=== PATIENT | female | born 1970 | race Caucasian/White ===

== ENCOUNTER 2016-08-07 14:22 | Inpatient (IN) ==
--- NOTE | 2016-08-07 14:43 | Emergency Department Note ---
Disposition Clinical Impression: STEMI (ST elevation myocardial infarction) Disposition: Admitted As Inpatient Condition: Critical Chest Pain HPI - General Chief Complaint: ED Chest Pain Stated Complaint: Chest Pain Time Seen by Provider: 08/07/16 14:35 Source: patient Limitations: no limitations Vital Signs Reviewed: Yes Nursing Notes Reviewed: Yes - History of Present Illness HPI Narrative: Mrs. Daniels, 46-year-old female, presents from home via POV with chief complaint of chest pain. Onset one hour prior to arrival while walking around a department store. Described as substernal intense squeeze without radiation. Patient is having difficulty with the interview given her dyspnea. She appears pale, diaphoretic, clutching her chest. PMH: [place] October 2014 with stents placed. She states this was secondary to chemotherapy. Severity scale (1-10): 9 - Related Data Home Medications Medication Instructions Recorded Confirmed Ascorbate Calcium [Vitamin C] 1,000 mg PO DAILY 08/07/16 08/07/16 Aspirin Enteric Coated [Aspirin EC] 81 mg PO DAILY 08/07/16 08/07/16 Atorvastatin Calcium [Lipitor] 80 mg PO HS 08/07/16 08/07/16 Cholecalciferol (D-3) [Vitamin D] 1,000 unit PO DAILY 08/07/16 08/07/16 Citalopram [CeleXA] 20 mg PO DAILY 08/07/16 08/07/16 Cyanocobalamin (Vitamin B-12) 100 mcg PO DAILY 08/07/16 08/07/16 [Vitamin B-12] Dulaglutide [Trulicity] 0.75 mg SQ QWEEK 08/07/16 08/07/16 Furosemide [Lasix] 20 mg PO DAILY 08/07/16 Gabapentin [Neurontin] 600 mg PO TID 08/07/16 08/07/16 Insulin Degludec [Tresiba 40 unit SQ HS 08/07/16 Flextouch U-100] L. Acidophilus/Bifid. Animalis 1 each PO DAILY 08/07/16 08/07/16 [Dialyvite Chewable Probiotic] Metformin HCl [Glucophage] 1,000 mg PO BIDWM 08/07/16 08/07/16 Metoprolol [Lopressor] 25 mg PO BID 08/07/16 08/07/16 Multivit with Calcium,Iron,Min 1 each PO DAILY 08/07/16 [One Daily Women's] [place]-3/Dha/Epa/Fish Oil [Fish Oil 1,000 mg PO DAILY 08/07/16 1,000 mg Softgel] Ubidecarenone [Co Q-10] 100 mg PO QID 08/07/16 08/07/16 Allergies Allergy/AdvReac Type Severity Reaction Status Date / Time Iodinated Contrast Media - Allergy Vomiting Verified 08/07/16 14:25 Oral and paclitaxel [From Taxol] Allergy Anaphylaxis Verified 08/07/16 14:25 All systems ED: reviewed and negative except as stated. Constitutional: Reports: weakness. Denies: fever, chills Cardiovascular: Reports: chest pain. Denies: palpitations Respiratory: Reports: dyspnea. Denies: cough, wheezes Gastrointestinal: Reports: nausea. Denies: abdominal pain, vomiting Musculoskeletal: Denies: back pain, neck pain Neurological: Reports: weakness. Denies: headache, numbness, paresthesias, confusion Chest Pain PMH - Past Medical History Medical history: Reports: cancer, diabetes, hyperlipidemia, hypertension, kidney stones, myocardial infarction - Social History Smoking Status: Current every day smoker Alcohol use: Reports: none Drug use: Reports: none Physical Exam Patient's vital signs are remarkably normal. General: Patient is alert, oriented, and in acute distress. She is dyspneic, pale, diaphoretic, clutching her chest. HEENT: No facial asymmetry. Head is normocephalic and atraumatic. Trachea midline. Cardiovascular: Heart regular rate and rhythm without clicks, rubs, gallops, or murmurs. No JVD. PMI nondisplaced. Bilateral radial and posterior tibial pulses equal and 2/4. 1+ pitting pedal edema. Respiratory: Symmetric chest rise with good respiratory effort. Bilateral breath sounds are clear without wheezing, crackles, or rhonchi. Abdomen: Obese. Bowel sounds present normoactive x-4 quadrants. Abdomen is soft, nondistended, and nontender. Psych: Patient's affect is appropriate for situation. - General Limitations: no limitations General appearance: alert Course Course Narrative: Patient presents one hour after onset of chest pain which was unrelieved with prescription of nitroglycerin. She is pale, diaphoretic, dyspneic, conversational dyspnea, clutching her chest. Spoke with interventional cardiology-Dr. Riddle. We discussed the patient's EKG and as well as her new ST elevations in leads 3 and aVF. He agrees to catheter lab at this time. Have ordered given patient aspirin. Will add Brilanta. Patient vomited her aspirin and Brilanta - will re-dose and provide Zofran IV. Patient taken to catheter lab and administered the ICU from there. Vital Signs Temperature 97.5 F L 08/07/16 14:25 Pulse Rate 58 08/07/16 14:25 Respiratory Rate 18 08/07/16 14:25 Blood Pressure 95/61 08/07/16 14:25 O2 Sat by Pulse Oximetry 100 08/07/16 14:25 Temperature 99 F 08/07/16 20:00 Pulse Rate 70 08/07/16 21:00 Respiratory Rate 16 08/07/16 21:00 Blood Pressure 122/73 08/07/16 21:00 O2 Sat by Pulse Oximetry 98 08/07/16 21:00 Oxygen Delivery Oxygen Delivery Room Air Chest Pain - Medical Records Medical records reviewed: Yes I reviewed the patient's medical records. - Lab Data Result diagrams: 08/07/16 14:44 08/07/16 14:44 Lab Results 08/07/16 08/07/16 08/07/16 Range/Units 14:44 14:44 14:44 WBC 14.7 H (4.3-11.1) K/mcL RBC 4.72 (3.82-4.97) M/mcL Hgb 12.8 (11.5-15.4) g/dL Hct 39.9 (35.3-44.9) % MCV 84.5 (83.0-100.0) fL MCH 27.1 L (28.0-33.3) pg MCHC 32.1 (31.6-35.5) g/dL RDW 14.3 (11.5-14.5) % Plt Count 418 H (140-400) K/mcL MPV 8.9 L (9.4-12.4) fL Immature Gran % 0.4 (0-4) % Seg Neutrophils % 61.1 % Lymphocytes % 29.0 % Monocytes % 6.3 % Eosinophils % 2.7 % Basophils % 0.5 % Neutrophils # 9.0 H (1.6-8.9) K/mcL Lymphocytes # 4.3 (0.6-4.6) K/mcL Monocytes # 0.9 (0.0-1.3) K/mcL Eosinophils # 0.4 (0.0-0.6) K/mcL Basophils # 0.1 (0.0-0.2) K/mcL PT 11.5 (9.4-12.1) Seconds INR 1.1 APTT 25.4 L (26.0-36.0) Seconds Sodium 141 (136-145) mEq/L Potassium 3.7 (3.5-4.5) mEq/L Chloride 106 (98-109) mEq/L Carbon Dioxide 21 (19-29) mEq/L BUN 22 H (7-20) mg/dL Creatinine 1.22 H (0.57-1.11) mg/dL Est GFR ( Amer) 58 L (> 60) Est GFR (Non-Af Amer) 47 L (> 60) BUN/Creatinine Ratio 18 (6-26) Glucose 170 H (70-99) mg/dL Calculated Osmolality 299 (280-300) Calcium 9.9 (8.6-10.8) mg/dL Troponin I (0-0.03) ng/mL 08/07/ Range/Units 14:44 WBC (4.3-11.1) K/mcL RBC (3.82-4.97) M/mcL Hgb (11.5-15.4) g/dL Hct (35.3-44.9) % MCV (83.0-100.0) fL MCH (28.0-33.3) pg MCHC (31.6-35.5) g/dL RDW (11.5-14.5) % Plt Count (140-400) K/mcL MPV (9.4-12.4) fL Immature Gran % (0-4) % Seg Neutrophils % % Lymphocytes % % Monocytes % % Eosinophils % % Basophils % % Neutrophils # (1.6-8.9) K/mcL Lymphocytes # (0.6-4.6) K/mcL Monocytes # (0.0-1.3) K/mcL Eosinophils # (0.0-0.6) K/mcL Basophils # (0.0-0.2) K/mcL PT (9.4-12.1) Seconds INR APTT (26.0-36.0) Seconds Sodium (136-145) mEq/L Potassium (3.5-4.5) mEq/L Chloride (98-109) mEq/L Carbon Dioxide (19-29) mEq/L BUN (7-20) mg/dL Creatinine (0.57-1.11) mg/dL Est GFR ( Amer) (> 60) Est GFR (Non-Af Amer) (> 60) BUN/Creatinine Ratio (6-26) Glucose (70-99) mg/dL Calculated Osmolality (280-300) Calcium (8.6-10.8) mg/dL Troponin I 0.00 (0-0.03) ng/mL - Radiology Data Radiology results reviewed: Yes I reviewed the patient's radiology results. - EKG Data EKG attestation: Yes I reviewed and interpreted this EKG. EKG results narrative: EKG dated 08/07/16 at 14:3200 as sinus bradycardia with a rate of 55. Normal intervals with IN 140, QRS 102, QT/QTc 439/429. [address] elevation in lead 3. [address] elevation in lead aVF. [address] elevation in lead V3. Possible ST depression in lead aVL. No T-wave inversions. No pathologic Q waves. Compared to previous dated 07/10/[address] elevations in leads 3, aVF, and V3 as well as possible ST depression in aVL are new. Heart Score - Score History: Highly Suspicious EKG: Non Specific repolarisation Disturbance Age: 45-65 Risk Factors: Equal/Greater than 3 risk factor or history of atherosclerotic disease Troponin: Less than normal limit HEART Score Total: 6 Attestation Statement - Attestation Attestation: I examined this patient and my medical decision-making was reviewed with the SENIOR MORTGAGE LOAN PROCESSOR/PA/Advanced Practice Nurse/Resident Physician. I agree with the documented findings, disposition and treatment plan as described except to the extent set forth below. 46 yo female presents with CP, n/v, diaphoresis, and SOB. onset 1 hour prior to arrival. ECG concerning for inferior STEMI. interventional cardiology notified after initial evaluation. Pt started on heparin, given ASA, and brillinta. transfered to orthodontic laboratory technician with VSS.
[2016-08-07] MEDS ORDERED: *HR* Heparin 5,000 UNIT/ML VIAL IVP ONE (14:44)
[2016-08-07] MEDS ORDERED: *HR* Heparin 5,000 UNIT/ML VIAL IVP PRN ×2 (14:44)
[2016-08-07] MEDS ORDERED: Heparin 25,000 UNIT/500 ML D5W 25,000 UNIT/500 ML MLS IVC SCH (14:45)
[2016-08-07] MEDS ORDERED: *HR* Heparin 5,000 UNIT/ML VIAL ONE (14:47)
[2016-08-07] MEDS ORDERED: *HR* Ticagrelor 90 MG TABLET ONE (14:47)
[2016-08-07] MEDS ORDERED: *HR* Ticagrelor 90 MG TABLET PO ONE ×2 (14:47→14:54)
[2016-08-07] MEDS ORDERED: 0.9 % Sodium Chloride 1,000 ML ONE (14:48)
[2016-08-07 14:51] LABS: Basophils # 0.1 K/mcL (0.0-0.2); Basophils % 0.5 %; Eosinophils # 0.4 K/mcL (0.0-0.6); Eosinophils % 2.7 %; Hematocrit 39.9 % (35.3-44.9); Hemoglobin 12.8 g/dL (11.5-15.4); Immature Granulocytes % 0.4 % (0-4); Lymphocytes # 4.3 K/mcL (0.6-4.6); Mean Corpuscular HGB Conc 32.1 g/dL (31.6-35.5); Mean Corpuscular Hemoglobin 27.1 pg (28.0-33.3); Mean Corpuscular Volume 84.5 fL (83.0-100.0); Mean Platelet Volume 8.9 fL (9.4-12.4); Monocytes # 0.9 K/mcL (0.0-1.3); Monocytes % 6.3 %; Platelet Count 418 K/mcL (140-400); Red Blood Count 4.72 M/mcL (3.82-4.97); Red Cell Distribution Width 14.3 % (11.5-14.5); Segmented Neutrophils % 61.1 %
[2016-08-07] MEDS: Aspirin 81 MG TAB.CHEW ONE ×2 (14:51→14:52)
[2016-08-07] MEDS ORDERED: 0.9 % Sodium Chloride 2,000 ML ONE (14:53)
[2016-08-07] MEDS ORDERED: *HR* Midazolam HCl 2 MG/2 ML VIAL ONE (14:53)
[2016-08-07] MEDS ORDERED: *HR* FentaNYL (PF) 100 MCG/2 ML VIAL ONE (14:53)
[2016-08-07] MEDS ORDERED: Ondansetron 4 MG/2 ML VIAL ONE (14:54)
[2016-08-07] MEDS ORDERED: Heparin 1,000 UNITS/500 mL NS 500 ML ONE (14:54)
[2016-08-07] MEDS ORDERED: *HR* Heparin 10,000 UNIT/10 ML VIAL ONE (14:54)
[2016-08-07] MEDS ORDERED: Aspirin 81 MG TAB.CHEW PO ONE (14:54)
[2016-08-07] MEDS ORDERED: Ondansetron 4 MG/2 ML VIAL IVP ONE (14:54)
[2016-08-07 14:55] LABS: INR 1.1; Prothrombin Time 11.5 Seconds (9.4-12.1)
[2016-08-07] MEDS ORDERED: Nitroglycerin 1,000 MCG/10 ML VIAL IV ONE (14:55)
[2016-08-07] MEDS ORDERED: methylPREDNISolone 125 MG/2 ML VIAL ONE (14:55)
[2016-08-07] MEDS ORDERED: Verapamil 5 MG/2 ML VIAL ONE (14:55)
[2016-08-07] MEDS ORDERED: Aspirin 81 MG TAB.CHEW ONE (14:56)
[2016-08-07 14:58] LABS: Activated Partial Thrombo Time 25.4 Seconds (26.0-36.0)
--- NOTE | 2016-08-07 15:05 | Cardiology History & Physical ---
Date of Encounter: 08/07/16 Time of Encounter: 15:00 Assessment and Plan (1) STEMI (ST elevation myocardial infarction) Current Visit: Yes Status: Acute Emergent LHC. Premedicated for contrast allergy with solumedrol and benadryl. EF assessment will be completed. Aspirin, brilinta and heparin given. Appropriate therapies once coronary anatomy is defined. The assessment and plan as outlined above was discussed with the patient and/or family members who expressed understanding and agreement. All questions were answered. Qualifiers: Involved coronary artery: other inferior wall coronary artery Qualified Code(s): I21.19 - ST elevation (STEMI) myocardial infarction involving other coronary artery of inferior wall (2) Endometrial cancer Current Visit: Yes Status: Acute reportedly in remission The assessment and plan as outlined above was discussed with the patient and/or family members who expressed understanding and agreement. All questions were answered. (3) Obesity Current Visit: Yes Status: Acute diet/exercise counseling The assessment and plan as outlined above was discussed with the patient and/or family members who expressed understanding and agreement. All questions were answered. Qualifiers: Obesity type: due to excess calories Obesity severity: morbid Qualified Code(s): E66.01 - Morbid (severe) obesity due to excess calories History of Present Illness Chief complaint: CHEST PRESSURE HPI: Ms. Fletcher is a 46 year old female with history of [place] s/p pci RCA BMS 2014 presents with severe chest pressure retrosternal associated with diaphoresis not improved with NTG. She recently underwent treatment for stage 4 endometrial cancer and is in remission. Past Med Surg Social Fam HX - Past Medical History Medical history: cancer, diabetes, hyperlipidemia, hypertension, kidney stones, myocardial infarction - Social History Smoking Status: Current every day smoker Alcohol use: none Drug use: none Medications and Allergies Allergies Iodinated Contrast Media - Oral and Allergy (Verified 08/07/16 14:25) Vomiting paclitaxel [From Taxol] Allergy (Verified 08/07/16 14:25) Anaphylaxis All Systems Review: A 10-system review of systems was performed and is negative for pertinent findings except as documented above in the HPI. - Constitutional Constitutional: no frequent falls, no night sweats - EENT Eyes: no blurred vision, no loss of vision Nose, mouth and throat: no bleeding gums, no epistaxis - Cardiovascular Cardiovascular: chest pain at rest, chest pain with exertion, diaphoresis - Respiratory Respiratory: no cough, no hemoptysis - Gastrointestinal Gastrointestinal: no coffee ground emesis, no hematemesis - Genitourinary Genitourinary: no dysuria, no hematuria - Musculoskeletal Musculoskeletal: no arthralgias, no back pain - Integumentary Integumentary: no erythema, no rash - Neurological Neurological: no dizziness, no syncope - Psychiatric Psychiatric: no anxiety, no depression - Hematological/Lymphatic Hematologic/Lymphatic: no easy bleeding, no easy bruising Physical Examination Vital Signs, Last 4 Hours Temp Pulse Resp BP Pulse Ox 08/07/16 14:38 52 16 115/59 08/07/16 14:25 97.5 F L 58 18 95/61 100 General: Conversant, Other (distressed) HEENT: Atraumatic Neck: No JVD Cardiac: Reg Rate and Rhythm Lungs: Normal Breath Sounds Neuro: Alert and responsive Abdomen: Soft Skin: No rashes noted on visualized skin Musculoskeletal: No Chest Wall Tenderness Extremities: No Edema Results 08/07/16 14:44 08/07/16 14:44 Lab Results 08/07/16 08/07/16 14:44 14:44 WBC 14.7 H Hgb 12.8 Hct 39.9 Plt Count 418 H INR 1.1 APTT 25.4 L - EKG Interpretation EKG results cardiology: sinus rhythm (inferior current of injury)
[2016-08-07] MEDS ORDERED: *HR* Morphine 2 MG/ML SYRINGE IVP PRN (15:06)
[2016-08-07] MEDS ORDERED: Ondansetron 4 MG/2 ML VIAL IVP PRN (15:06)
--- NOTE | 2016-08-07 15:06 | Pre-Sedation Evaluation ---
Pre-sedation evaluation - Pre-sedation checklist Date of procedure: 08/07/16 Procedure: [facility] Recent Vitals: Last Vital Signs Temp 97.5 F L 08/07/16 14:25 Pulse 52 08/07/16 14:45 Resp 18 08/07/16 14:45 BP 128/81 08/07/16 14:45 Pulse Ox 100 08/07/16 14:45 H&P (including ROS) documented in medical record: Yes Previous reaction to sedatives/anesthetics: No Dietary Status: unknown ASA Classification *see protocol: CLASS II-Mild systemic disease, E-EMERGENCY- Add to any of the above to indicate emergent Plan of Care: Pt appropriate candidate for procedure/moderate/conscious sedation , Risks/benefits of procedure/sedation discussed w/ patient/family, If not NPO; Risk of intake outweiged by necessity to perform procedure
[2016-08-07 15:07] LABS: Calcium 9.9 mg/dL (8.6-10.8); Potassium 3.7 mEq/L (3.5-4.5)
[2016-08-07] MEDS ORDERED: Tirofiban 12.5 MG/250ML 12.5 MG/250 ML BAG ONE (15:20)
[2016-08-07] MEDS ORDERED: Tirofiban 12.5 MG/250ML 12.5 MG/250 ML BAG IVC SCH (16:00)
--- NOTE | 2016-08-07 16:12 | Invasive Diagnostic Lab Proc ---
Name: Juliette Fletcher Date of Study: 08/07/2016 Date: 1970 Ht: 64.0in Medical Record#: [id number] Age: 46 Wt: 209.44lb Gender: Female BSA: 2. Order #: [id number] BMI: 35.93 Physicians Procedure Physician: Stevan Riddle MD, [facility] Referring MD: Referring MD: Staff Name Position Time In Daphney Buenrostro RN Filemaker Developer 03:17 PM [facility], Evelyn RT (R) Scrub 03:17 PM Kathy Manzanares RN Monitor 03:17 PM Indications Indication STEMI Procedures Performed Procedure L HRT ARTERY/VENTRICLE ANGIO PRQ CARD REVASC VA 1 VSL Pre-Procedure Checklist Informed consent is complete signed and on chart. H\\T\\P is on chart. ID band is on and ID verified with patient. Patient NPO for procedure The procedure was described for the patient and questions were answered. Blood Pressure: 155/103 ECG is on chart. Rhythm: STEMI Plan of Care Patient will tolerate the procedure without complications. Adequate level of comfort will be maintained. Hemodynamics will remain stable Patient will recover from procedure without complications. Respiratory function will be maintained. Cardiac rhythm will remain stable. Patient temperature will be maintained. Patient and/or family have verbalized understanding of the procedure. Patient Education Chief Complaint/Reason for Test: Cardiac Cath Developmental Category: Adult (18-64 years) Developmentally Appropriate for Age: Yes Learning Barriers: None Education Needs: Procedure Education Method: Verbal Information Taught: Cardiac Cath Educational Evaluation: Able to repeat information Intravenous Access Time IV Size Location DC'd Fluid/Drip Rate Units RN 03:42 PM 18g 1 1/4" Patent On Arrival Lt Antecubital 0.9NaCl 100 ml/hr Daphney Buenrostro RN 03:42 PM 18g 1 1/4" Patent On Arrival Rt Antecubital Allergies Iodinated Contrast Media - Oral and paclitaxel Vital Signs Time BP (mmHg) HR (bpm) O2 Sat. RR (bpm) LOC 03:22 PM / % 3 = Answers simple questions/follows commands 03:22 PM / % 4 = Oriented but drowsy 03:12 PM 146 / 81 154 100 % 1 03:17 PM 155 / 103 77 100 % 16 03:21 PM 142 / 91 85 98 % 24 03:26 PM 137 / 83 75 99 % 26 03:31 PM 142 / 87 78 98 % 26 03:36 PM 143 / 89 109 100 % 21 03:41 PM 152 / 91 75 100 % 25 Procedural Medications Time Medication Dose Units Method Given By 03:13 PM Benadryl 50 mg Intravenous Daphney Buenrostro RN 03:13 PM Solu-medrol 125 mg Intravenous Daphney Buenrostro RN 03:14 PM Versed 2 mg Intravenous Daphney Buenrostro RN 03:14 PM Fentanyl 50 mcg Intravenous Daphney Buenrostro RN 03:14 PM Lidocaine 1% 1 ml Subcutaneous Stevan Riddle MD, FACC 03:17 PM Oxygen 2 L/min nasal cannula Daphney Buenrostro RN 03:18 PM Nitroglycerin 200 mcg Verapamil 2.5 mg Intraarterial Stevan Riddle MD, FACC 03:30 PM Aggrastat 12.5mg/250ml 46 ml Intravenous WestdaleDaphney pepe RN 03:30 PM Aggrastat 12.5mg/250ml 16.5 ml Intravenous ChitraDaphney pepe RN 03:49 PM Aspirin (81mg) 324 mg Orally Daphney Buenrostro RN 03:50 PM Plavix 600 mg Orally Daphney Buenrostro RN ASA Classification: CLASS II- Mild systemic disease (i.e. well-controlled diabetes, hypertension, asthma, cigarette smoking) Hira Score Preprocedure Postprocedure Activity 2- Moves 4 extremities sustained head lift Activity 2- Moves 4 extremities sustained head lift Circulation 2- SBP +/= 20 points of pre-anesthetic level Circulation 2- SBP +/= 20 points of pre-anesthetic level Consciousness 2- Awake and alert oriented x 3 Consciousness 2- Awake and alert oriented x 3 O2 Saturation 2- Able to maintain O2 satruation of 92% on room air O2 Saturation 2- Able to maintain O2 satruation of 92% on room air Respiratory 2- Able to deep breathe and cough well Respiratory 2- Able to deep breathe and cough well Total Score 10 Total Score 10 Contrast Agent: Isovue Diagnostic Contrast: 75 ml Total Contrast: 75 ml Fluoro Dose: 590 mGy Procedure Log Time Note Enter By 03:05 PM Pt arrived to lab instructor 2 at 15:05 [email or web address] 03:11 PM Vitals capture started with the following parameters, Patient=Adult, Interval=5 min, Initial Mfdlsrfq=124 mmHg, Deflation Rate=5 mmHg, Cuff placed on Right Arm 03:11 PM CathStat 03:12 PM IL=857 bpm, JVQU=180/81 mmhg, XvQ8=112.0 %, Resp=1 B/min, Comment=STEMI 03:13 PM Time: 15:13 Benadryl 50 mg Intravenous Given by Daphney Buenrostro RN [email or web address] 03:14 PM Time: 15:13 Solu-medrol 125 mg Intravenous Given by Daphney Buenrostro RN [email or web address] 03:14 PM Time: 15:14 Versed 2 mg Intravenous Given by Daphney Buenrostro RN [email or web address] 03:14 PM Time: 15:14 Fentanyl 50 mcg Intravenous Given by Daphney Buenrostro RN [email or web address] 03:14 PM ASA Class CLASS II- Mild systemic disease (i.e. well-controlled diabetes, hypertension, asthma, cigarette smoking) [email or web address] 03:14 PM Procedure start 15:14 [email or web address] 03:15 PM Time: 15:14 1 ml Lidocaine 1% to right radial Subcutaneous Given by Stevan Riddle MD, [facility] [email or web address] 03:17 PM Daphney Buenrostro RN Position: Filemaker Developer Time in: 15:17 [email or web address] 03:17 PM Eboni, Evelyn RT (R) Position: Scrub Time in: 15:17 [email or web address] 03:17 PM Kathy Manzanares RN Position: Monitor Time in: 15:17 [email or web address] 03:17 PM HR=77 bpm, IJBH=821/103 mmhg, XdU9=859 %, Resp=16 B/min 03:17 PM Patient charges- Angio tray pack, Navilyst 3mm J, Pulse Oximetry and ACIST tubing and transducer [email or web address] 03:17 PM Case Delayed No [email or web address] 03:17 PM Hair removed from procedure site in procedure lab using clippers. Right wrist prepped with Chloraprep by Kathy Manzanares RN, safety strap applied then patient was draped. Skin intact. [email or web address] 03:17 PM Hair removed from procedure site in procedure lab using clippers. Right groin prepped with Chloraprep by Kathy Manzanares RN, safety strap applied then patient was draped. Skin intact. [email or web address] 03:17 PM Physician arrived 15:17 [email or web address] 03:17 PM ASA Class CLASS II- Mild systemic disease (i.e. well-controlled diabetes, hypertension, asthma, cigarette smoking) [email or web address] 03:17 PM Pool and allen completed [email or web address] 03:17 PM Sign in performed according to hospital policy. [email or web address] 03:17 PM Procedure start 15:17 [email or web address] 03:17 PM Time: 15:17 Oxygen on at 2 L/min per nasal cannula by Daphney Buenrostro RN [email or web address] 03:18 PM Access obtained by percutaneous puncture. 6Fr 10cm Terumo Page sheath placed in right Radial artery. [id number] [email or web address] 03:18 PM Time: 15:18 Patient given , 200 mcg Nitroglycerin, and 2.5 mg Verapamil Intraarterial by Stevan Riddle MD, [facility] [email or web address] 03:18 PM Clinical Presentation: STEMI or equivalent [email or web address] 03:19 PM Pressure channel 1 zero failed. 03:19 PM Pressure channel 1 zero failed. 03:19 PM Pressure channel 1 zero failed. 03:19 PM Pressure channel 1 zero failed. 03:19 PM Pressure channel 1 zero failed. 03:20 PM Pressure channel 1 zeroed. 03:20 PM Recorded ECG: HR=82 Condition=Condition 1 03:20 PM 0.035 260cm Navilyst 3mmJ wire [id number] [email or web address] 03:20 PM 6Fr JR 4 Runway guide catheter was used to cannulate the PCI vessel successfully. reused? No [email or web address] 03:21 PM .014 PT Graphix 182cm guide wire across target lesion- successful. reused? No [email or web address] 03:21 PM Inflation device was opened. [email or web address] 03:21 PM HR=85 bpm, DTQS=551/91 mmhg, SpO2=98.0 %, Resp=24 B/min, Comment=STEMI 03:22 PM 2.5 mm x 20 mm Emerge Monorail balloon across target lesion- successful. reused? No [email or web address] 03:22 PM Time: 15:22LOC: 3 = Answers simple questions/follows commands [email or web address] 03:22 PM Time: 15:22 Patient comfortable and pain free: Yes [email or web address] 03:23 PM Balloon inflated @ 14 terri for 10 seconds [email or web address] 03:23 PM Balloon inflated @ 14 terri for 11 seconds [email or web address] 03:23 PM Recorded Pressure: Ao, HR=75, Condition=Condition 1 (Aorta) Ao 117/82/99 03:24 PM Balloon inflated @ 14 terri for 14 seconds [email or web address] 03:24 PM pt received 4000 units heparin and 4mg zofran IVP in ED IRON INSTALLER [email or web address] 03:26 PM HR=75 bpm, LWTZ=006/83 mmhg, SpO2=99.0 %, Resp=26 B/min, Comment=STEMI 03:27 PM 3.5mm x 28mm Synergy bioabsorbable stent across target lesion- successful Lot #[id number] [email or web address] 03:27 PM Stent deployed @ 16 terri for 23 seconds [email or web address] 03:28 PM Stent delivery system removed intact. [email or web address] 03:29 PM 4.0 mm x 20mm NC Trek Rx balloon across target lesion- successful. reused? No [email or web address] 03:30 PM Time: 15:30 Aggrastat 12.5mg/250ml 16.5 ml Intravenous Given by Daphney Buenrostro RN Law pump [email or web address] 03:30 PM Time: 15:30 Aggrastat 12.5mg/250ml 46 ml Intravenous Given by Daphney Buenrostro RN Law pump [email or web address] 03:30 PM Balloon inflated @ 16 terri for 12 seconds [email or web address] 03:31 PM Balloon inflated @ 16 terri for 8 seconds [email or web address] 03:31 PM HR=78 bpm, QMBK=307/87 mmhg, SpO2=98.0 %, Resp=26 B/min, Comment=STEMI 03:31 PM Balloon inflated @ 14 terri for 8 seconds [email or web address] 03:32 PM Balloon catheter removed intact. [email or web address] 03:32 PM Guide wire removed intact. [email or web address] 03:33 PM Guide catheter removed intact. [email or web address] 03:36 PM WB=442 bpm, JDPI=188/89 mmhg, OnX5=602.0 %, Resp=21 B/min, Comment=STEMI 03:36 PM 6Fr EBU 3.0 Medtronic guide catheter was used to cannulate the PCI vessel successfully. reused? No [email or web address] 03:37 PM Time: 15:22 Patient comfortable and pain free: Yes [email or web address] 03:37 PM Time: 15:22LOC: 4 = Oriented but drowsy [email or web address] 03:37 PM LCA angiography performed in multiple views. [email or web address] 03:38 PM Coronary Dominance: Co-dominant [email or web address] 03:39 PM Catheter removed [email or web address] 03:39 PM 5Fr Pigtail catheter inserted over the wire DNC [email or web address] 03:39 PM [ Select Channel To Zero ] 03:40 PM Catheter selectively placed in left ventricle [email or web address] 03:40 PM Bolus angiogram of left Ventricle complete: 10 ml/sec for a total of 30 mls [email or web address] 03:40 PM Recorded Pressure: LV, HR=74, Condition=Condition 1 (Left Ventricle) LV 142/-3/14 03:41 PM Recorded Pressure: LV, Ao, HR=75, Condition=Condition 1 (Left Ventricle) LV 120/5/14, (Aorta) Ao 131/75/98 03:41 PM Catheter removed [email or web address] 03:41 PM Wire removed [email or web address] 03:41 PM HR=75 bpm, SXIN=950/91 mmhg, SkW1=254.0 %, Resp=25 B/min 03:42 PM Procedure completed at 15:42 [email or web address] 03:42 PM 12 ml air in Vasc Band. [email or web address] 03:50 PM Time: 15:49 Aspirin (81mg) 324 mg Orally Given by Daphney Buenrostro RN 03:50 PM Time: 15:50 Plavix 600 mg Orally Given by Daphney Buenrostro RN [email or web address] 03:51 PM Procedure completed at 15:40 [email or web address] 03:51 PM Sign out completed: Radiation Dose 589.65 mGy Fluoro Time: 6.7 Isovue 370 - 200ml contrast 75 ml given by Stevan Riddle MD, [facility]. Complications: NoneCardiac Rehab Consult needed: YesConfirmed administered medications: Yes [email or web address] 03:51 PM Isovue 370 - 200ml,1 Bottle(s) used. [email or web address] 03:51 PM Arterial sheath pulled, Vasc Band closure device used and was Successful S/N. [email or web address] 03:52 PM Post ECG NSR [email or web address] 03:52 PM Post Blood Pressure 149/81 [email or web address] 03:52 PM 15:52 Post Pulses Rt Radial 2+ [email or web address] 03:52 PM Information taught Cardiac Cath, PCI, and Vasc Band [email or web address] 03:53 PM Education needs Procedure, Plan of Care, and Responsibilities of Patient in Care [email or web address] 03:53 PM Learning barriers :None [email or web address] 03:53 PM Education Methods Verbal [email or web address] 03:53 PM Education evaluation Able to repeat information [email or web address] 03:53 PM Site status No bleeding/hematoma - Rt Wrist as reported by Sites, Evelyn RT (R) at 15:53 [email or web address] 03:53 PM Plavix, Effient or Brilinta given Yes [email or web address] 03:53 PM Delay to floor No [email or web address] 03:55 PM Report given to Carlos KELLEY Pt taken to ICU Room #4. 15:54 [email or web address] 03:59 PM Patient out of room: 15:59 [email or web address] 04:00 PM Lesion found in Mid RCA. Pre Stenosis: 100 Pre MARÍA ELENA Flow: [email or web address] 04:01 PM Right Coronary, Right Posterior Descending Arteries with Right Posterolateral and Acute Marginal branches with 100 % stenosis. If graft is supplying this area, 0 % stenosis [email or web address] Complications Complication None Hemodynamics Pressures Site Systolic/A Wave Diastolic/V Wave Mean AO 117 82 99 LV 142 -3 14 LV 120 5 14 AO 131 75 98 Post Procedure Information Blood Pressure: 149/81 mmHg Rhythm: NSR Post procedural instructions were given Closure Device Time Device Success/Fail 08/07/2016 4:00:00 PM Manual Compression Successful Site Checks Time Location Status Staff Sheath In? Note 03:53 PM Rt Wrist No bleeding/hematoma Sites, Evelyn RT (R) Pulses Time Site Pre-Procedure Post-Procedure Note 3:52:00 PM Rt Radial 2+ Updated by Kathy Manzanares RN on 08/07/2016 4:05:07 PM electronically signed on 08/07/2016 4:05:57 PM with status of Final
--- NOTE | 2016-08-07 16:16 | Invasive Diagnostic Lab ---
Name: Juliette Fletcher Date of Study: 08/07/2016 Date: 1970 Ht: 162.6 cm /64.0 in Medical Record#: [id number] Age: 46 Wt: 95. kg / 209.44 lb Account/Order#: [id number] Gender: Female BSA: 2. Order #: [id number] Fluoro Dose: 590 mGy BMI: 35.93 Procedure Physician: Stevan Riddle MD, [facility] Referring MD: Referring MD: Procedures Performed: LEFT HEART CATH PCI of Acute MS Indications: STEMI Impressions: There is severe one vessel coronary artery disease. The left ventricle is normal and has normal contractility EF 60% Patient had successful PTCA/Drug-Eluting Stent placement in the mid RCA. Recommendations: Plavix (Clopidogrel) 75 mg PO Daily. Optimal medical therapy of patient's disease. Aggressive risk factor modification. History/Risk Factors: MS 2014 cancer diabetes hypertension high cholesterol kidney stones Diabetes Hypertension Dyslipidemia Current/Recent Smoker Prior MS Previous PCI Procedure Access obtained in the right Radial artery by percutaneous puncture Patient had successful PTCA/Drug-Eluting Stent placement in the mid RCA. Complications: None Contrast: Isovue 75ml Closure Device: Manual Compression Hemodynamics: Pressures Site Systolic/ A Wave Diastolic/ V Wave End Diastolic/ Mean HR AO 117 82 99 75 LV 142 -3 14 74 LV 120 5 14 80 AO 131 75 98 69 LV Ventriculography Ejection Method: LV Gram Ejection Fraction: 60% Wall Motion: GAMA Anterobasal Normal Anterolateral Normal Apical: Normal Inferoapical Normal Inferobasal Normal Coronary Dominance: Co-dominant Lesion Findings/Interventions * Left Main Coronary Artery The LMCA is angiographically free of disease. * Left Anterior Descending The LAD has minimal disease proximal and mid. The 1st Diagonal is angiographically free of disease. * Circumflex The Circumflex is angiographically free of disease. The 1st Marginal is angiographically free of disease. The Left PDA is angiographically free of disease. * Right Coronary Artery There is a 28 mm long, 100% stenosis in the Mid RCA. The lesion has thrombus present. An intervention was performed on the Mid RCA with a final stenosis of 0%. There were no lesion complications. The final MARÍA ELENA flow was 3. Thrombus present in 2014 BMS. Interventional Device(s) Vessel Segment Type Name Diameter (mm) Length (mm) Mid RCA Balloon Emerge Monorail 2.5 20 Mid RCA Drug Eluting Stent Synergy 3.5 28 Mid RCA Balloon NC Trek Rx 4 20 Updated by Kathy Manzanares RN on 08/07/2016 4:06:07 PM Stevan Riddle MD, FAC electronically signed on 08/07/2016 4:09:45 PM with status of Final
[2016-08-07] MEDS ORDERED: Nitroglycerin 0.4 MG TAB.SUBL SL PRN (16:17)
[2016-08-07] MEDS ORDERED: Dextrose Gel 15 GM PO PRN ×2 (20:51)
[2016-08-07] MEDS ORDERED: *HR* Dextrose 50 % in Water (Syg) 50 ML SYRINGE IVP PRN (20:51)
[2016-08-07] MEDS ORDERED: D5% in Water 1,000 ML IVC PRN (20:51)
[2016-08-07] MEDS ORDERED: Insulin LISPRO 300 UNITS/3 ML VIAL SQ SCH (21:00)
[2016-08-07] MEDS: Metoprolol 100 MG TABLET PO SCH (21:54)
[2016-08-08 03:33] LABS: Basophils % 0.1 %; Hematocrit 36.3 % (35.3-44.9); Hemoglobin 11.8 g/dL (11.5-15.4); Immature Granulocytes % 0.5 % (0-4); Lymphocytes # 0.8 K/mcL (0.6-4.6); Mean Corpuscular HGB Conc 32.5 g/dL (31.6-35.5); Mean Corpuscular Hemoglobin 27.3 pg (28.0-33.3); Monocytes # 0.2 K/mcL (0.0-1.3); Monocytes % 2.3 %; Neutrophils # 9.1 K/mcL (1.6-8.9); Platelet Count 296 K/mcL (140-400); Red Blood Count 4.32 M/mcL (3.82-4.97); Red Cell Distribution Width 14.3 % (11.5-14.5); Segmented Neutrophils % 89.1 %
[2016-08-08 03:46] LABS: BUN/Creatinine Ratio 19 (6-26); Blood Urea Nitrogen 21 mg/dL (7-20); Calcium 9.2 mg/dL (8.6-10.8); Carbon Dioxide 20 mEq/L (19-29); Chloride 104 mEq/L (98-109); Glucose 301 mg/dL (70-99); Osmolality,Calculated 298 (280-300); Potassium 4.2 mEq/L (3.5-4.5); Sodium 137 mEq/L (136-145); eGFR For African Americans > 60 (> 60); eGFR For Non-African Americans 55 (> 60)
[2016-08-08] MEDS ORDERED: *HR* Enoxaparin 40 MG/0.4 ML SYRINGE SQ SCH (06:00)
[2016-08-08] MEDS ORDERED: Insulin LISPRO 300 UNITS/3 ML VIAL SQ SCH ×2 (07:30→21:00)
[2016-08-08] MEDS: Metoprolol 100 MG TABLET PO SCH ×2 (08:26→20:29)
--- NOTE | 2016-08-08 08:27 | ECHO - Doppler Report ---
Echocardiogram Name: Juliette Fletcher Date of Study: 08/07/2016 Date: 1970 Ht: 64.0 in Medical Record#: [id number] Age: 46 Wt: 209.0 lb Gender: Female BSA: 1.99 Order #: [id number] Location: [facility] Room #: IC4 Reading Physician: Mike Reina MD, [facility] Gear Milling Machine Set Up Operator: Angelia Hardy Ordering Physician: Stevan Riddle MD, [facility] Primary Physician: Anayeli Craven DO Indications: ACS Impressions: Normal LV systolic function, LVEF 60%. Mild left ventricular diastolic dysfunction. Normal right ventricular size and function. Mild mitral regurgitation. No evidence of pulmonary hypertension. Left Ventricular Wall Motion: Rest Echo Findings All wall segments showed normal motion. Findings: Study Quality * Technically adequate exam. ECG Findings * Normal sinus rhythm. Left Ventricle * Normal LV systolic function, LVEF 60%. * Normal LV chamber size and wall thickness. * Mild left ventricular diastolic dysfunction. Right Ventricle * Normal right ventricular size and function. Left Atrium * Normal left atrial size. Right Atrium * Normal right atrial size. Aorta * Normally sized aortic root. Pericardium * There is a trivial pericardial effusion present. IVC * The IVC is not dilated. Aortic Valve * Trileaflet aortic valve. * No aortic stenosis. * No aortic regurgitation. Mitral Valve * Normal mitral valve structure. * No mitral stenosis. * Mild mitral regurgitation. Tricuspid Valve * Normal tricuspid valve structure. * No tricuspid stenosis. * Trace tricuspid regurgitation. * No evidence of pulmonary hypertension. Pulmonic Valve * Normal pulmonic valve structure. * No pulmonic stenosis. * Trace pulmonic regurgitation. History Diabetes Hypercholesteremia History of Smoking Years 20 Packs 0.5 Family History of CAD History of CAD/PTCA Myocardial Infarction Measurements: BP: 133/ 76 2D Normal Values RVIDd: 3.30 cm IVSd: 1.00 cm 0.6 - 1.0 cm LVIDd: 4.10 cm 3.7 - 5.6 cm LVPWd: 1.00 cm 0.6 - 1.1 cm LVIDs: 2.70 cm 1.5 - 3.6 cm AO: 3.30 cm < 4.0 cm %FS: 34.10 cm >25 % LA volume: 50 Mitral Valve Peak E:.84 m/sec Peak A:1.02 m/sec E/A Ratio:0.8 Tricuspid Valve TV Regurg Peak Grad: 24.00mmHg TV Regurg Peak Chava: 2.47m/sec Updated by Mike Reina MD, [facility] on 08/08/2016 8:22:29 AM electronically signed on 08/08/2016 8:23:07 AM with status of Final Wall Motion Cha: 1=Normal, 2=Hypokinesis, 3=Akinesis, 4=Dyskinesis, 5=Aneurysmal, 6=Hyperkinetic, X=Not Visualized (Blank)=Missing
[2016-08-08] MEDS ORDERED: Aspirin 81 MG TAB.CHEW PO SCH (09:00)
--- NOTE | 2016-08-08 09:15 | Cardiology Progress Note ---
Date of Encounter: 08/08/16 Time of Encounter: 09:00 Assessment and Plan (1) STEMI (ST elevation myocardial infarction) Current Visit: Yes Status: Acute Presented with inferior STEMI. [facility] 08/07/16: severe 1v CAD, EF 60%; s/p successful PTCA/GUERLINE to ISR mRCA; otherwise no significant CAD TTE 08/07/16: EF 60%, mild LVDD, mild MR, normal wall motion. Has been chest pain free since PCI. Will obtain repeat ECG this AM. Post PCI education discussed including importance of uninterrupted DAPT (asa + plavix) for at least 1 year. Continue statin and betablocker. Risk factor modification. Plan to step down to 2NE today, anticipate discharge home in AM. Qualifiers: Involved coronary artery: other inferior wall coronary artery Qualified Code(s): I21.19 - ST elevation (STEMI) myocardial infarction involving other coronary artery of inferior wall (2) DMII (diabetes mellitus, type 2) Current Visit: Yes Status: Chronic Hold metformin 72 hours s/p [facility]--resume 08/10/16. On Sliding scale insulin coverage as inpatient. Qualifiers: Diabetes mellitus complication status: with unspecified complications Diabetes mellitus mcc insulin use: unspecified terminal gauger insulin use status Qualified Code(s): E11.8 - Type 2 diabetes mellitus with unspecified complications (3) HTN (hypertension) Current Visit: Yes Status: Chronic Controlled, home medications resumed. Adjust as needed. Qualifiers: Hypertension type: essential hypertension Qualified Code(s): I10 - Essential (primary) hypertension (4) Tobacco abuse Current Visit: Yes Status: Chronic Down to 5 cigarettes per day. Recommend complete cessation. States adverse reaction with Wellbutrin and nicotine patches in the past. Will order prn nictotine gum as inpatient. (5) Endometrial cancer Current Visit: Yes Status: Acute States has been in remission since January 2015. Received treatment at [facility]. (6) Obesity Current Visit: Yes Status: Acute Risk factor modification encouraged including heart healthy diet, weight loss, daily exercise. Qualifiers: Obesity type: due to excess calories Obesity severity: morbid Qualified Code(s): E66.01 - Morbid (severe) obesity due to excess calories Discussion w patient/family: The assessment and plan as outlined above was discussed with the patient and/or family members who expressed understanding and agreement. All questions were answered. Thank you for involving us in the care of your patient. Please call with any questions. The patient will be discussed and reviewed with Dr. Bustillo; changes to be made accordingly. Subjective Principal diagnosis: inferior STEMI Interval history: Seen and examined. Presented on 08/07/16 late afternoon with inferior STEMI. Reports sudden onset of chest tightness/heaviness yesterday afternoon. Associated symptoms include diaphoresis and nausea/vomiting. s/p successful PCI to ISR RCA. No complaints overnight. Denies recurrent chest pain or discomfort since admission. Vitals, telemetry, and labs stable. Plan for step down to 2NE/2N Objective Vital Signs, Last 4 Hours Temp Pulse Resp BP Pulse Ox 08/08/16 08:20 82 20 127/78 96 08/08/16 07:22 98.1 F 08/08/16 06:00 64 14 111/65 94 General: Conversant, No Apparent Distress HEENT: Atraumatic, Normocephaly, Mucus Membranes Moist Cardiac: Reg Rate and Rhythm, Normal S1 and S2 Lungs: Normal Breath Sounds Neuro: Alert and responsive Abdomen: Soft Skin: No rashes noted on visualized skin Musculoskeletal: No Chest Wall Tenderness Extremities: No Edema, Normal Pulses Other: right radial cath site: +2 radial pulses. No hematoma, ecchymosis, or oozing noted at site. Brisk cap refill. Results 08/08/16 03:16 08/08/16 03:16 Lab Results 08/08/16 08/08/16 03:16 03:16 WBC 10.2 Hgb 11.8 Hct 36.3 Plt Count 296 Sodium 137 Potassium 4.2 Chloride 104 Carbon Dioxide 20 BUN 21 H Creatinine 1.08 Glucose 301 H Calcium 9.2 Active Medications Acetaminophen (Tylenol) 500 mg PO Q6HR PRN PRN Reason: Mild Pain Stop: 02/06/17 15:07 Aspirin (Aspirin) 81 mg PO DAILY IRENA Stop: 02/07/17 09:01 Last Admin: 08/08/16 08:27 Dose: 81 mg Atorvastatin Calcium (Lipitor) 80 mg PO HS IRENA Stop: 02/06/17 21:01 Last Admin: 08/07/16 21:55 Dose: 80 mg Clopidogrel Bisulfate (Plavix) 75 mg PO DAILY IRENA Stop: 02/07/17 09:01 Last Admin: 08/08/16 08:27 Dose: 75 mg Dextrose/Water (Dextrose 50% (Syg)) 25 ml IVP AD PRN PRN Reason: Hypoglycemia Stop: 02/06/17 20:52 Diphenhydramine HCl (Benadryl) 25 mg PO HS PRN PRN Reason: Insomnia Stop: 02/06/17 15:53 Enoxaparin Sodium (Lovenox) 40 mg SQ 0600 IRENA PRN Reason: Protocol Stop: 02/07/17 06:01 Last Admin: 08/08/16 05:28 Dose: 40 mg Glucagon (Glucagen) 1 mg IM ONCE PRN PRN Reason: Hypoglycemia Stop: 02/06/17 20:52 Glucose (Gluctose) 15 gm PO ONCE PRN PRN Reason: Hypoglycemia Stop: 02/06/17 20:52 Glucose (Gluctose) 30 gm PO ONCE PRN PRN Reason: Hypoglycemia Stop: 02/06/17 20:52 Dextrose (Dextrose 5%) 1,000 mls @ 100 mls/hr IVC .Q10H PRN PRN Reason: HYPOGLYCEMIA Stop: 02/06/17 20:52 Insulin Human Lispro (Humalog) 0 units SQ HS IRENA PRN Reason: Protocol Stop: 02/06/17 21:01 Last Admin: 08/07/16 21:55 Dose: 4 units Insulin Human Lispro (Humalog) 0 units SQ TIDAC IRENA PRN Reason: Protocol Stop: 02/07/17 07:31 Last Admin: 08/08/16 08:27 Dose: 10 units Metoprolol Tartrate (Lopressor) 25 mg PO BID IRENA Stop: 02/06/17 21:01 Last Admin: 08/08/16 08:26 Dose: 25 mg Morphine Sulfate (Morphine Sulfate) 4 mg IVP Q3H PRN PRN Reason: Severe Pain (7-10) Stop: 02/06/17 15:07 Nitroglycerin (Nitroglycerin) 0.4 mg SL Q5MIN PRN PRN Reason: Chest Pain Stop: 02/06/17 16:18 Ondansetron HCl (Zofran) 4 mg IVP Q8HR PRN PRN Reason: Nausea And Vomiting Stop: 02/06/17 15:07 - Imaging and Cardiology Echo: pending Cardiac cath: report reviewed Other Results: 12 hour tele: avg HR=71 SR. No significant event noted. - EKG Interpretation EKG results cardiology: personally reviewed Consult Discharge Plan - Plan Referrals: Anayeli Craven DO [Primary Care Provider] -
[2016-08-08] MEDS ORDERED: Ondansetron 4 MG/2 ML VIAL IVP PRN (09:46)
[2016-08-08] MEDS ORDERED: D5% in Water 1,000 ML IVC PRN (09:46)
[2016-08-08] MEDS ORDERED: Nitroglycerin 0.4 MG TAB.SUBL SL PRN (09:46)
[2016-08-08] MEDS ORDERED: *HR* Dextrose 50 % in Water (Syg) 50 ML SYRINGE IVP PRN (09:46)
[2016-08-08] MEDS ORDERED: Dextrose Gel 15 GM PO PRN ×2 (09:46)
[2016-08-08] MEDS ORDERED: *HR* Morphine 2 MG/ML SYRINGE IVP PRN (09:46)
[2016-08-08] MEDS: Ascorbic Acid 500 MG TABLET PO SCH (11:21)
[2016-08-08] MEDS: Insulin LISPRO 300 UNITS/3 ML VIAL SQ SCH ×2 (11:22→17:53)
[2016-08-08] MEDS: (Cyanocobalamin (Vitamin B-12) [Vitamin B-12] 100 MCG PO SCH (11:22)
[2016-08-08] MEDS: Cholecalciferol (D-3) 1,000 UNIT TABLET PO SCH (11:22)
[2016-08-08] MEDS ORDERED: Nicotine 2 MG GUM BC PRN (12:10)
[2016-08-08] MEDS: Gabapentin 300 MG CAPSULE PO SCH ×2 (14:31→20:29)
--- NOTE | 2016-08-08 16:52 | Electrocardiograph Report ---
[address] [place], [place] [address] Test Date: 2016-08-07 Pat Name: Juliette Fletcher Department: 103 Room: [facility] Gender: F Wire Winder: MIGUE : 1970 Requested By: Real Sanders Order Number: [id number] Reading MD: Stevan Riddle MD Measurements Intervals [place] Rate: 55 P: 7 MT: 140 QRS: 28 QRSD: 102 T: 56 QT: 439 QTc: 429 Interpretive Statements SINUS BRADYCARDIA ST ELEVATION,INFERIOR INJURY ACUTE SC Electronically Signed On 08-08-2016 16:50:34 EDT by Stevan Riddle MD
[2016-08-09] MEDS ORDERED: *HR* Enoxaparin 40 MG/0.4 ML SYRINGE SQ SCH (06:00)
[2016-08-09 07:06] VITALS: BP 143/83
[2016-08-09] MEDS ORDERED: Aspirin 81 MG TAB.CHEW PO SCH (09:00)
--- NOTE | 2016-08-09 09:18 | Discharge Summary ---
Date of Encounter: 08/09/16 Time of Encounter: 09:15 - Discharge Diagnosis (1) STEMI (ST elevation myocardial infarction) Priority: Primary Status: Acute Qualifiers: Involved coronary artery: other inferior wall coronary artery Qualified Code(s): I21.19 - ST elevation (STEMI) myocardial infarction involving other coronary artery of inferior wall (2) DMII (diabetes mellitus, type 2) Priority: Secondary Status: Chronic Qualifiers: Diabetes mellitus complication status: with unspecified complications Diabetes mellitus custodial insulin use: unspecified long term care administrator insulin use status Qualified Code(s): E11.8 - Type 2 diabetes mellitus with unspecified complications (3) HTN (hypertension) Priority: Secondary Status: Chronic Qualifiers: Hypertension type: essential hypertension Qualified Code(s): I10 - Essential (primary) hypertension (4) Tobacco abuse Priority: Secondary Status: Chronic - Discharge Medications Prescriptions: Nitroglycerin 0.4 mg SL Q5MIN PRN #25 tab.subl PRN Reason: Chest Pain Clopidogrel [Plavix] 75 mg PO DAILY #30 tablet Home Medications: Ascorbate Calcium [Vitamin C] 1,000 mg PO DAILY 08/07/16 [History] Aspirin Enteric Coated [Aspirin EC] 81 mg PO DAILY 08/07/16 [History] Atorvastatin Calcium [Lipitor] 80 mg PO HS 08/07/16 [History] Cholecalciferol (D-3) [Vitamin D] 1,000 unit PO DAILY 08/07/16 [History] Citalopram [CeleXA] 20 mg PO DAILY 08/07/16 [History] Cyanocobalamin (Vitamin B-12) [Vitamin B-12] 100 mcg PO DAILY 08/07/16 [History] Dulaglutide [Trulicity] 0.75 mg SQ QWEEK 08/07/16 [History] Furosemide [Lasix] 20 mg PO DAILY 08/07/16 [History] Gabapentin [Neurontin] 600 mg PO TID 08/07/16 [History] Insulin Degludec [Tresiba Flextouch U-100] 40 unit SQ HS 08/07/16 [History] L. Acidophilus/Bifid. Animalis [Dialyvite Chewable Probiotic] 1 each PO DAILY [History] Metformin HCl [Glucophage] 1,000 mg PO BIDWM 08/07/16 [History] Metoprolol [Lopressor] 25 mg PO BID 08/07/16 [History] Multivit with Calcium,Iron,Min [One Daily Women's] 1 each PO DAILY 08/07/16 [ History] [place]-3/Dha/Epa/Fish Oil [Fish Oil 1,000 mg Softgel] 1,000 mg PO DAILY 08/07/16 [History] Ubidecarenone [Co Q-10] 100 mg PO QID 08/07/16 [History] Clopidogrel [Plavix] 75 mg PO DAILY #30 tablet 08/09/16 [Rx] Nitroglycerin 0.4 mg SL Q5MIN PRN #25 tab.subl 08/09/16 [Rx] Allergies/Adverse Reactions: Allergies Iodinated Contrast Media - Oral and Allergy (Verified 08/07/16 14:25) Vomiting paclitaxel [From Taxol] Allergy (Verified 08/07/16 14:25) Anaphylaxis Date of admission: 08/07/16 15:06 Primary care physician: Abdulaziz Somers Discharging clinician: Roney Ring Anticipated date of discharge: 08/09/16 - Patient Status Disposition: Home, Self-Care Condition: Good Functional capacity at discharge: independent ambulation Overall status at discharge: patient is progressing back to baseline - Discharge Instructions Instructions: Nitroglycerin, Rapid Release (By mouth), Clopidogrel (By mouth), Myocardial Infarction (DC), Diabetes Mellitus Type 2 in Adults (DC), Chronic Hypertension (DC), Cigarette Smoking and Your Health, 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 Cardio office will call you with appt date & time.) Additional Instructions: RISK FACTORS: STOP SMOKING: If you smoke, STOP. Smoking or tobacco use significantly increases your risk of heart disease because nicotine causes the arteries to narrow or constrict. It also causes fats to stick to the artery. Your chances of having a heart attack are greatly increased if you continue to smoke. For more information, call the education line for smoking cessation 5-478-TSFETVQ EAT A LOW FAT/CHOLESTEROL/SODIUM DIET: This diet may help reduce your chances of having a heart attack. LIFTING: Avoid lifting anything more than 10 pounds for 5-7 days Prior to straining, laughing, sneezing and/or coughing, apply manual pressure directly over insertion site. ACTIVITY: You may walk or climb stairs as tolerated You can resume sexual activity as tolerated In general, you are encouraged to engage in a minimum of 30 minutes or more of moderate intensity physical activity, such as brisk walking, daily or at least 3 -4 times weekly BATHING Do not submerge the site into water (bath tub, hot tub, swimming pool) for 1 week. This can be a source for infection into the blood stream. You may shower after 24 hours SITE CARE: After 24 hours, you may remove the dressing and leave the site open to air. Keep the site clean and dry. Clean gently and pat dry. You can expect bruising and tenderness that gradually resolve within a week or two. Return to work as instructed per your physician Resume driving as instructed per physician- usually 3 days after Keep all scheduled follow up appointments Resume medications as instructed IMPORTANT: If prescribed a Platelet Aggregation Inhibitor such as, Plavix, Brilinta or Effient: Duration of therapy is minimum one year These medications are often used in combination with Aspirin in prevention of future heart attacks Never discontinue unless consult with your Sagger Filler STROKE (CVA) Risk factors for a stroke are: Age, cigarette smoking, diabetes, excessive alcohol consumption, family history, high blood pressure, overweight, physical inactivity, prior stroke, heart attack, diagnosis of carotid artery stenosis or other artery disease. Warning signs: Sudden numbness or weakness of the face, arm or leg; especially on one side of the body, sudden confusion, trouble speaking or understanding, sudden trouble seeing in one or both eyes, sudden trouble walking, dizziness, loss of balance or coordination, sudden severe headache with no cause. Call 911 or go to the Emergency Room. CONGESTIVE HEART FAILURE: If you have been diagnosed with Congestive Heart Failure (CHF) and your symptoms return, make an appointment with your physician Weigh yourself daily. Notify your physician if you have a weight gain of two or more pounds in one day or five or more pounds in one week. If you experience any difficulty breathing, please call 911 BLEEDING: Although the risk of bleeding is minimal, it can happen. If you have any bleeding from the site, apply firm pressure above the puncture site for 10-15 minutes. If the bleeding does not stop, continue manual pressure and call 911 Contact your physician if: You develop a fever greater than 101 degrees Fahrenheit Your site becomes reddened or has any drainage You have an increase in pain or burning at the site or if a large knot forms at the site. If you experience chest pain, shortness of breath, dizziness, or extreme tiredness, stop the activity and rest. Please notify your physicians office if you experience any of these symptoms and they are not relieved by rest please call 911! - Diet and Activity Activity: increase activity as tolerated Diet: low fat, low cholesterol - Hospital Course Hospital course: This is a 46- yr-old female who presented with chest pain and was found to have inferior STEMI. She was taken urgently to the cardiac catheterization lab. LHC 08/07/[address] Stevan Riddle revealed severe 1v CAD, EF 60%; s/p successful PTCA/GUERLINE to ISR mRCA; otherwise no significant CAD TTE 08/07/16 showed EF 60%, mild LVDD, mild MR, normal wall motion. There was no complication from her procedure. She initially presented with mild PAU that is now resolved. She denies recurrent chest pain. Denies problems with right radial access. She has f/u in one week with Barbara Holley CNP. Importance of DAPT uninterrupted for minimum of one year reviewed and she voiced understanding. Activity restrictions reviewed as stated above. Cardiac rehab discussed and she is considering. Smoking cessation discussed. Encouraged to quit smoking. She declines NRT. Time spent discussing smoking cessation with patient: 3 to 10 minutes - Time Spent with Patient Total time spent providing and/or coordinating discharge services:1hr Physical Examination Vital Signs, Last 4 Hours Temp Pulse Resp BP Pulse Ox 08/09/16 07:03 97.5 F L 65 16 143/83 96 B/p running 107/59-148/89. Continue to monitor. General: Conversant, No Apparent Distress HEENT: Atraumatic, Normocephaly, Mucus Membranes Moist Neck: No JVD, Normal carotid pulses Cardiac: Reg Rate and Rhythm, Normal S1 and S2, No Murmur Lungs: Normal Breath Sounds, No Wheeze, Rales, Rhonchi Neuro: Alert and responsive, No focal deficits noted Abdomen: Soft, Non-Tender Skin: No rashes noted on visualized skin Musculoskeletal: No Chest Wall Tenderness Extremities: No Clubbing, No Cyanosis, No Edema, Normal Pulses, Other (right radial access without redness or hematoma. )
[2016-08-09] MEDS: Insulin LISPRO 300 UNITS/3 ML VIAL SQ SCH (09:37)
[2016-08-09] MEDS: Cholecalciferol (D-3) 1,000 UNIT TABLET PO SCH (09:42)
[2016-08-09] MEDS: Metoprolol 100 MG TABLET PO SCH (09:42)
[2016-08-09] MEDS: Ascorbic Acid 500 MG TABLET PO SCH (09:42)
[2016-08-09] MEDS: Gabapentin 300 MG CAPSULE PO SCH (09:43)
[2016-08-09] MEDS: (Cyanocobalamin (Vitamin B-12) [Vitamin B-12] 100 MCG PO SCH (09:44)
--- NOTE | 2016-08-09 10:45 | Electrocardiograph Report ---
[address] [address] Test Date: 2016-08-08 Pat Name: Juliette Fletcher Department: 109 Room: 2N6 Gender: F Activities Director: : 1970 Requested By: Stevan Riddle Order Number: [id number] Reading MD: Stevan Riddle MD Measurements Intervals [place] Rate: 71 P: 22 IN: 141 QRS: 14 QRSD: 96 T: -3 QT: 398 QTc: 420 Interpretive Statements SINUS RHYTHM Electronically Signed On 08-09-2016 10:44:01 EDT by Stevan Riddle MD
== END 2016-08-09 16:54 | disposition home or self-care (01) | DRG 174 ==
LOC: EMEROO 14:22 → ICNU 15:03 → 2NENU 08-08 10:30
PROVIDERS: ADMIT Emergency Medicine; ATTEND Emergency Medicine

== ENCOUNTER 2021-11-09 14:12 | Inpatient (IN) ==
[2021-11-09 16:20] LABS: Bacteria,Urine Few per hpf (None-Few); Bilirubin,Urine Negative (Negative); Blood,Urine Large (Negative); Clarity,Urine Turbid (Clear); Color,Urine Light-Yellow (Yellow); Glucose,Urine (UA) Normal (Normal); Ketones,Urine Negative (Negative); Leukocyte Esterase,Urine Large (Negative); Nitrite,Urine Negative (Negative); Protein,Urine 30 mg/dL (Neg-Trace); RBC,Urine TNTC per hpf (0-3); Specific Gravity,Urine 1.021 (1.010-1.025); Squamous Epithelial Cell,Urine Few per hpf (None-Few); Urobilinogen,Urine Normal (Normal); WBC,Urine 30-50 per hpf (0-3)
[2021-11-09 16:24] LABS: Basophils % 0.3 %; Eosinophils # 0.4 K/mcL (0.0-0.6); Eosinophils % 5.2 %; Hematocrit 37.9 % (35.3-44.9); Hemoglobin 12.1 g/dL (11.5-15.4); Immature Granulocytes % 0.1 % (0-4); Lymphocytes # 0.5 K/mcL (0.6-4.6); Mean Corpuscular HGB Conc 31.9 g/dL (31.6-35.5); Mean Corpuscular Hemoglobin 29.7 pg (28.0-33.3); Mean Corpuscular Volume 93.1 fL (83.0-100.0); Monocytes # 0.5 K/mcL (0.0-1.3); Monocytes % 7.3 %; Neutrophils # 5.7 K/mcL (1.6-8.9); Platelet Count 290 K/mcL (140-400); Red Blood Count 4.07 M/mcL (3.82-4.97); Red Cell Distribution Width 14.6 % (11.5-14.5); Segmented Neutrophils % 80.1 %; White Blood Count 7.1 K/mcL (4.3-11.1)
[2021-11-09 16:32] LABS: Albumin/Globulin Ratio 1.4 (1.1-2.2); Bilirubin,Direct 0.1 mg/dL (0.0-0.2); Bilirubin,Indirect 0.4 mg/dL (0.0-1.0); Bilirubin,Total 0.5 mg/dL (0.3-1.0); Calcium 8.7 mg/dL (8.6-10.3); Globulin 2.9 g/dL (2.4-3.5); Potassium 3.7 mEq/L (3.5-5.1); Total Protein 6.9 g/dL (6.4-8.9)
[2021-11-09] MEDS ORDERED: Iopamidol - 370 500 ML MLS IVP ONE (17:38)
[2021-11-09] MEDS ORDERED: Iopamidol - 370 500 ML MLS PO ONE (17:47)
[2021-11-09] MEDS ORDERED: cefTRIAXone 1,000 MG in Water for inj. (sterile) 10 ML IVP ONE (21:24)
[2021-11-09] MEDS ORDERED: Acetaminophen 325 MG TABLET PO PRN (22:21)
[2021-11-09] MEDS ORDERED: Ondansetron ODT 4 MG TAB.RAPDIS SL PRN (22:21)
[2021-11-09] MEDS ORDERED: Naloxone 0.4 MG/ML INJ IVP PRN (22:21)
[2021-11-09] MEDS ORDERED: *HR* HYDROcodone/Acet 5/325 mg TABLET PO PRN (22:21)
[2021-11-09] MEDS ORDERED: Melatonin 3 MG TABLET PO PRN (22:21)
[2021-11-10 02:55] LABS: Albumin 3.4 g/dL (3.5-5.7); Albumin/Globulin Ratio 1.3 (1.1-2.2); Bilirubin,Total 0.4 mg/dL (0.3-1.0); Calcium 8.1 mg/dL (8.6-10.3); Globulin 2.6 g/dL (2.4-3.5); Magnesium 1.6 mg/dL (1.6-2.6); Phosphorous 3.3 mg/dL (2.7-4.5); Potassium 3.3 mEq/L (3.5-5.1)
[2021-11-10 02:56] LABS: Hematocrit 33.2 % (35.3-44.9); Hemoglobin 10.8 g/dL (11.5-15.4); Mean Corpuscular HGB Conc 32.5 g/dL (31.6-35.5); Mean Corpuscular Hemoglobin 29.3 pg (28.0-33.3); Mean Corpuscular Volume 90.2 fL (83.0-100.0); Mean Platelet Volume 9.5 fL (9.4-12.4); Platelet Count 250 K/mcL (140-400); Red Blood Count 3.68 M/mcL (3.82-4.97); Red Cell Distribution Width 14.3 % (11.5-14.5); White Blood Count 7.5 K/mcL (4.3-11.1)
[2021-11-10] MEDS ORDERED: *HR* Enoxaparin 40 MG/0.4 ML SYRINGE SQ SCH (06:00)
[2021-11-10] MEDS ORDERED: cefTRIAXone 1,000 MG in 0.9 % Sodium Chloride 10 ML IVP SCH ×2 (09:00→21:00)
[2021-11-10] MEDS ORDERED: *HR* Rocuronium Bromide 50 MG/5 ML VIAL ONE ×3 (09:45→12:42)
[2021-11-10] MEDS ORDERED: *HR* Midazolam HCl 2 MG/2 ML VIAL ONE (09:46)
[2021-11-10] MEDS ORDERED: Ondansetron 4 MG/2 ML VIAL ONE (09:46)
[2021-11-10] MEDS ORDERED: *HR* Propofol 200 MG/20 ML VIAL IVP ONE (09:46)
[2021-11-10] MEDS ORDERED: *HR* FentaNYL (PF) 100 MCG/2 ML VIAL ONE (09:46)
[2021-11-10] MEDS ORDERED: Lidocaine -MPF 2% 5 ML VIAL ONE ×2 (09:46→11:33)
[2021-11-10] MEDS ORDERED: Albuterol 2.5 MG/3 ML NEBULIZER IH PRN (10:11)
[2021-11-10] MEDS ORDERED: Ondansetron 4 MG/2 ML VIAL IVP PRN ×2 (10:11→15:00)
[2021-11-10] MEDS ORDERED: Naloxone 0.4 MG/ML INJ IVP PRN ×2 (10:11→15:00)
[2021-11-10] MEDS ORDERED: Nitroglycerin 0.4 MG TAB.SUBL SL PRN (10:11)
[2021-11-10] MEDS ORDERED: Acetaminophen IV 1,000 MG/100 ML BAG IVPB ONE ×2 (10:12→11:29)
[2021-11-10] MEDS ORDERED: *HR* HYDROMORPHONE 2 MG/ML VIAL ONE (10:37)
[2021-11-10] MEDS ORDERED: MetroNIDAZOLE 500 MG/100 ML 500 MG/100 ML BAG IVPB ONE (10:40)
[2021-11-10] MEDS ORDERED: MetroNIDAZOLE 500 MG/100 ML 500 MG/100 ML BAG IVPB SCH (10:45)
[2021-11-10] MEDS ORDERED: *HR* Magnesium Sulfate 1 GM/2 ML VIAL ONE ×2 (10:49→11:32)
[2021-11-10] MEDS ORDERED: Ketamine HCL *QUVA* 50mg (1mL) SYRINGE ONE (11:08)
[2021-11-10] MEDS ORDERED: Dextrose Gel 15 GM/37.5 ML TUBE PO PRN ×4 (11:22→15:00)
[2021-11-10] MEDS ORDERED: *HR* Dextrose 50 % in Water (Syg) 50 ML SYRINGE IVP PRN (11:22)
[2021-11-10] MEDS ORDERED: D5% in Water 1,000 ML IVC PRN (11:22)
[2021-11-10] MEDS ORDERED: Insulin LISPRO 300 UNITS/3 ML VIAL SUBQ SCH (12:00)
[2021-11-10] MEDS ORDERED: Sugammadex Sodium 200 MG/2 ML VIAL IV ONE (13:08)
[2021-11-10] MEDS: *HR* FentaNYL (PF) 100 MCG/2 ML VIAL IVP PRN ×2 (14:05→14:27)
[2021-11-10] MEDS: 0.9 % Sodium Chloride 1,000 ML IVC SCH (16:21)
[2021-11-10] MEDS: Morphine PCA 30 MG/ 30 ML 30 ML PCA.VIAL IVC PRN (17:24)
[2021-11-10] MEDS: Acetaminophen IV 1,000 MG/100 ML BAG IVPB SCH (18:22)
[2021-11-10] MEDS: Fluconazole 400 MG/200 ML 400 MG/200 ML BAG IVPB SCH (18:23)
[2021-11-10] MEDS: Ketorolac 30 MG/ML VIAL IVP SCH (18:23)
[2021-11-10] MEDS: Piperacillin/Tazobactam 3.375 GM in 0.9 % Sodium Chloride Mini Bag 100 ML IVPB SCH (18:23)
[2021-11-10] MEDS: *HR* Heparin 5,000 UNIT/ML VIAL SQ SCH (18:24)
[2021-11-10] MEDS: Insulin LISPRO 300 UNITS/3 ML VIAL SUBQ SCH (22:20)
[2021-11-11] MEDS: 0.9 % Sodium Chloride 1,000 ML IVC SCH ×3 (00:07→17:41)
[2021-11-11] MEDS: Acetaminophen IV 1,000 MG/100 ML BAG IVPB SCH ×4 (01:19→18:37)
[2021-11-11] MEDS: Ketorolac 30 MG/ML VIAL IVP SCH ×4 (01:19→17:42)
[2021-11-11] MEDS: Piperacillin/Tazobactam 3.375 GM in 0.9 % Sodium Chloride Mini Bag 100 ML IVPB SCH ×3 (01:20→17:15)
[2021-11-11 02:26] LABS: Basophils % 0.1 %; Hematocrit 28.7 % (35.3-44.9); Hemoglobin 9.4 g/dL (11.5-15.4); Immature Granulocytes % 0.1 % (0-4); Lymphocytes # 0.3 K/mcL (0.6-4.6); Lymphocytes % 2.9 %; Mean Corpuscular HGB Conc 32.8 g/dL (31.6-35.5); Mean Corpuscular Hemoglobin 30.5 pg (28.0-33.3); Mean Corpuscular Volume 93.2 fL (83.0-100.0); Mean Platelet Volume 9.1 fL (9.4-12.4); Monocytes # 0.6 K/mcL (0.0-1.3); Monocytes % 5.8 %; Neutrophils # 9.3 K/mcL (1.6-8.9); Platelet Count 221 K/mcL (140-400); Red Blood Count 3.08 M/mcL (3.82-4.97); Red Cell Distribution Width 14.4 % (11.5-14.5); Segmented Neutrophils % 91.1 %; White Blood Count 10.2 K/mcL (4.3-11.1)
[2021-11-11 02:49] LABS: Calcium 7.6 mg/dL (8.6-10.3); Potassium 4.7 mEq/L (3.5-5.1)
[2021-11-11] MEDS: Insulin LISPRO 300 UNITS/3 ML VIAL SUBQ SCH ×4 (05:58→17:43)
[2021-11-11] MEDS: *HR* Heparin 5,000 UNIT/ML VIAL SQ SCH ×2 (05:59→17:42)
[2021-11-11] MEDS: Pantoprazole 40 MG VIAL IVP SCH (09:07)
[2021-11-11 15:10] LABS: Estimated Average Glucose 111 mg/dl; Hemoglobin A1C 5.5 %
[2021-11-11] MEDS: Fluconazole 400 MG/200 ML 400 MG/200 ML BAG IVPB SCH (17:16)
[2021-11-11] MEDS: Morphine PCA 30 MG/ 30 ML 30 ML PCA.VIAL IVC PRN (21:02)
[2021-11-12] MEDS: 0.9 % Sodium Chloride 1,000 ML IVC SCH ×3 (01:21→18:25)
[2021-11-12] MEDS: Piperacillin/Tazobactam 3.375 GM in 0.9 % Sodium Chloride Mini Bag 100 ML IVPB SCH ×3 (01:21→22:48)
[2021-11-12] MEDS: Ketorolac 30 MG/ML VIAL IVP SCH ×2 (01:21→06:53)
[2021-11-12] MEDS: Acetaminophen IV 1,000 MG/100 ML BAG IVPB SCH ×4 (01:22→18:48)
[2021-11-12] MEDS: Insulin LISPRO 300 UNITS/3 ML VIAL SUBQ SCH ×4 (01:22→18:22)
[2021-11-12 06:38] LABS: Basophils % 0.2 %; Eosinophils # 0.1 K/mcL (0.0-0.6); Hemoglobin 8.8 g/dL (11.5-15.4); Immature Granulocytes % 0.4 % (0-4); Lymphocytes # 0.2 K/mcL (0.6-4.6); Lymphocytes % 3.5 %; Mean Corpuscular HGB Conc 30.3 g/dL (31.6-35.5); Mean Corpuscular Hemoglobin 29.4 pg (28.0-33.3); Monocytes # 0.4 K/mcL (0.0-1.3); Monocytes % 6.7 %; Neutrophils # 4.9 K/mcL (1.6-8.9); Platelet Count 202 K/mcL (140-400); Red Blood Count 2.99 M/mcL (3.82-4.97); Segmented Neutrophils % 87.2 %; White Blood Count 5.6 K/mcL (4.3-11.1)
[2021-11-12] MEDS: *HR* Heparin 5,000 UNIT/ML VIAL SQ SCH ×2 (06:54→18:25)
[2021-11-12 06:57] LABS: Calcium 7.7 mg/dL (8.6-10.3)
[2021-11-12 07:46] LABS: Hypochromasia Present (Not Present); Platelet Estimate Normal (Normal); Poikilocytosis 1+ (Not Present)
[2021-11-12] MEDS: Pantoprazole 40 MG VIAL IVP SCH (09:29)
[2021-11-12 12:08] LABS: Creatine Kinase 157 Units/L (30-223); Iron < 10 mcg/dL (50-170); Transferrin 164 mg/dL (203-362); Uric Acid 4.7 mg/dL (2.3-7.6)
[2021-11-12] MEDS: *HR* Dextrose 50 % in Water (Syg) 50 ML SYRINGE IVP PRN (12:24)
[2021-11-12 12:28] LABS: Vitamin D 25 Hydroxy 24 ng/mL (30-80)
[2021-11-12 12:30] LABS: Vitamin B12 287 pg/mL (250-1100)
[2021-11-12] MEDS: Fluconazole 200 MG/100 ML 200 MG/100 ML BAG IVPB SCH (15:57)
[2021-11-13] MEDS: *HR* Dextrose 50 % in Water (Syg) 50 ML SYRINGE IVP PRN (01:48)
[2021-11-13] MEDS: Acetaminophen IV 1,000 MG/100 ML BAG IVPB SCH ×4 (01:48→17:44)
[2021-11-13] MEDS: D5% in Water 1,000 ML IVC PRN ×3 (01:49→22:02)
[2021-11-13 04:33] LABS: Basophils % 0.3 %; Eosinophils # 0.2 K/mcL (0.0-0.6); Eosinophils % 6.7 %; Hematocrit 24.2 % (35.3-44.9); Hemoglobin 7.5 g/dL (11.5-15.4); Immature Granulocytes % 0.8 % (0-4); Lymphocytes # 0.3 K/mcL (0.6-4.6); Lymphocytes % 8.1 %; Mean Corpuscular Hemoglobin 29.5 pg (28.0-33.3); Mean Corpuscular Volume 95.3 fL (83.0-100.0); Mean Platelet Volume 9.5 fL (9.4-12.4); Monocytes # 0.3 K/mcL (0.0-1.3); Monocytes % 8.4 %; Neutrophils # 2.7 K/mcL (1.6-8.9); Platelet Count 179 K/mcL (140-400); Red Blood Count 2.54 M/mcL (3.82-4.97); Segmented Neutrophils % 75.7 %; White Blood Count 3.6 K/mcL (4.3-11.1)
[2021-11-13 04:50] LABS: Calcium 7.5 mg/dL (8.6-10.3)
[2021-11-13 05:20] LABS: Platelet Estimate Normal (Normal)
[2021-11-13] MEDS: 0.9 % Sodium Chloride 1,000 ML IVC SCH ×4 (07:39→22:02)
[2021-11-13] MEDS: *HR* Heparin 5,000 UNIT/ML VIAL SQ SCH ×2 (08:54→17:43)
[2021-11-13] MEDS: Pantoprazole 40 MG VIAL IVP SCH (09:01)
[2021-11-13] MEDS: Piperacillin/Tazobactam 3.375 GM in 0.9 % Sodium Chloride Mini Bag 100 ML IVPB SCH ×2 (09:01→22:01)
[2021-11-13 15:58] LABS: Protein/Creatinine Ratio,Urine 8.35 mg/mg (0.00-0.20); Sodium, Urine 21.6 mEq/L
[2021-11-13] MEDS: Fluconazole 200 MG/100 ML 200 MG/100 ML BAG IVPB SCH (17:44)
[2021-11-13] MEDS: *HR* OxyCODONE Immed Rel 5 MG TABLET PO PRN (22:03)
[2021-11-14] MEDS: Acetaminophen IV 1,000 MG/100 ML BAG IVPB SCH ×3 (01:56→13:39)
[2021-11-14 06:01] LABS: Basophils % 0.5 %; Eosinophils # 0.4 K/mcL (0.0-0.6); Eosinophils % 7.3 %; Hematocrit 28.1 % (35.3-44.9); Hemoglobin 8.9 g/dL (11.5-15.4); Immature Granulocytes % 1.8 % (0-4); Lymphocytes # 0.4 K/mcL (0.6-4.6); Lymphocytes % 6.6 %; Mean Corpuscular HGB Conc 31.7 g/dL (31.6-35.5); Mean Corpuscular Hemoglobin 29.7 pg (28.0-33.3); Mean Corpuscular Volume 93.7 fL (83.0-100.0); Mean Platelet Volume 9.4 fL (9.4-12.4); Monocytes # 0.2 K/mcL (0.0-1.3); Monocytes % 4.1 %; Neutrophils # 4.5 K/mcL (1.6-8.9); Nucleated Red Blood Cells 0.4 /100 WBC (0); Platelet Count 235 K/mcL (140-400); Segmented Neutrophils % 79.7 %
[2021-11-14 06:06] LABS: White Blood Count 5.6 K/mcL (4.3-11.1)
[2021-11-14] MEDS: 0.9 % Sodium Chloride 1,000 ML IVC SCH (06:22)
[2021-11-14] MEDS: *HR* OxyCODONE Immed Rel 5 MG TABLET PO PRN (06:23)
[2021-11-14] MEDS: *HR* Heparin 5,000 UNIT/ML VIAL SQ SCH ×2 (06:23→18:19)
[2021-11-14 06:26] LABS: Calcium 7.7 mg/dL (8.6-10.3); Potassium 3.9 mEq/L (3.5-5.1)
[2021-11-14] MEDS: Pantoprazole 40 MG VIAL IVP SCH (08:48)
[2021-11-14] MEDS: Piperacillin/Tazobactam 3.375 GM in 0.9 % Sodium Chloride Mini Bag 100 ML IVPB SCH ×3 (08:48→23:28)
[2021-11-14] MEDS: D5% in Water 1,000 ML IVC PRN (08:50)
[2021-11-14] MEDS ORDERED: *HR* OxyCODONE Immed Rel 5 MG TABLET PO PRN (12:12)
[2021-11-14 12:42] LABS: Complement C3 114 mg/dL (87-200)
[2021-11-14] MEDS: Albumin 25% 25gram/100mL 25 GM/100 ML IV.SOLN IVPB SCH ×2 (15:49→23:56)
[2021-11-14] MEDS: Fluconazole 200 MG/100 ML 200 MG/100 ML BAG IVPB SCH (16:01)
[2021-11-14] MEDS: Gabapentin 300 MG CAPSULE PO SCH (21:03)
[2021-11-15 02:12] LABS: Basophils % 0.2 %; Eosinophils # 0.5 K/mcL (0.0-0.6); Eosinophils % 5.5 %; Hemoglobin 8.6 g/dL (11.5-15.4); Immature Granulocytes % 1.8 % (0-4); Lymphocytes # 0.5 K/mcL (0.6-4.6); Lymphocytes % 5.5 %; Mean Corpuscular HGB Conc 31.9 g/dL (31.6-35.5); Mean Corpuscular Hemoglobin 29.7 pg (28.0-33.3); Mean Corpuscular Volume 93.1 fL (83.0-100.0); Mean Platelet Volume 9.4 fL (9.4-12.4); Monocytes # 0.4 K/mcL (0.0-1.3); Monocytes % 5.3 %; Neutrophils # 6.7 K/mcL (1.6-8.9); Nucleated Red Blood Cells 0.2 /100 WBC (0); Platelet Count 243 K/mcL (140-400); Red Cell Distribution Width 15.1 % (11.5-14.5); Segmented Neutrophils % 81.7 %; White Blood Count 8.2 K/mcL (4.3-11.1)
[2021-11-15 02:25] LABS: Calcium 8.4 mg/dL (8.6-10.3)
[2021-11-15 02:54] LABS: Platelet Estimate Normal (Normal)
[2021-11-15] MEDS: *HR* Heparin 5,000 UNIT/ML VIAL SQ SCH ×2 (06:11→18:06)
[2021-11-15] MEDS: Piperacillin/Tazobactam 3.375 GM in 0.9 % Sodium Chloride Mini Bag 100 ML IVPB SCH ×2 (08:02→20:44)
[2021-11-15] MEDS: Albumin 25% 25gram/100mL 25 GM/100 ML IV.SOLN IVPB SCH ×3 (08:03→23:10)
[2021-11-15] MEDS: Gabapentin 300 MG CAPSULE PO SCH ×2 (08:04→20:44)
[2021-11-15] MEDS ORDERED: Furosemide 40 MG/4 ML VIAL IVP ONE ×2 (11:44→21:00)
[2021-11-15] MEDS: Fluconazole 200 MG/100 ML 200 MG/100 ML BAG IVPB SCH (16:30)
[2021-11-15 21:13] LABS: INR 1.2; Prothrombin Time 13.3 Seconds (9.4-12.1)
[2021-11-16 03:53] LABS: Basophils % 0.3 %; Eosinophils # 0.5 K/mcL (0.0-0.6); Eosinophils % 5.5 %; Hematocrit 23.9 % (35.3-44.9); Hemoglobin 7.7 g/dL (11.5-15.4); Immature Granulocytes % 1.8 % (0-4); Lymphocytes # 0.4 K/mcL (0.6-4.6); Lymphocytes % 4.2 %; Mean Corpuscular HGB Conc 32.2 g/dL (31.6-35.5); Mean Corpuscular Hemoglobin 29.3 pg (28.0-33.3); Mean Corpuscular Volume 90.9 fL (83.0-100.0); Mean Platelet Volume 9.7 fL (9.4-12.4); Monocytes # 0.3 K/mcL (0.0-1.3); Monocytes % 3.5 %; Neutrophils # 7.9 K/mcL (1.6-8.9); Nucleated Red Blood Cells 0.2 /100 WBC (0); Platelet Count 233 K/mcL (140-400); Red Blood Count 2.63 M/mcL (3.82-4.97); Segmented Neutrophils % 84.7 %; White Blood Count 9.3 K/mcL (4.3-11.1)
[2021-11-16 04:23] LABS: Potassium 3.6 mEq/L (3.5-5.1)
[2021-11-16] MEDS: *HR* OxyCODONE Immed Rel 5 MG TABLET PO PRN ×2 (05:14→23:06)
[2021-11-16] MEDS: *HR* Heparin 5,000 UNIT/ML VIAL SQ SCH ×2 (05:15→18:36)
[2021-11-16] MEDS: Piperacillin/Tazobactam 3.375 GM in 0.9 % Sodium Chloride Mini Bag 100 ML IVPB SCH ×2 (08:30→18:36)
[2021-11-16] MEDS: Albumin 25% 25gram/100mL 25 GM/100 ML IV.SOLN IVPB SCH ×3 (08:32→23:07)
[2021-11-16] MEDS ORDERED: *HR* FentaNYL (PF) 100 MCG/2 ML VIAL IVP ONE (09:06)
[2021-11-16] MEDS ORDERED: *HR* Midazolam HCl 2 MG/2 ML VIAL IVP ONE ×2 (09:06→09:37)
[2021-11-16] MEDS ORDERED: 0.9 % Sodium Chloride 500 ML ONE (09:14)
[2021-11-16] MEDS ORDERED: 0.9 % Sodium Chloride 1,000 ML ONE (09:36)
[2021-11-16] MEDS ORDERED: Iopamidol - 300 50 ML VIAL IVP ONE (10:02)
[2021-11-16] MEDS: Gabapentin 300 MG CAPSULE PO SCH ×2 (11:30→19:56)
[2021-11-16] MEDS ORDERED: traZODone 50 MG TABLET PO PRN (15:18)
[2021-11-16] MEDS: Fluconazole 200 MG/100 ML 200 MG/100 ML BAG IVPB SCH (15:47)
[2021-11-16] MEDS ORDERED: Furosemide 40 MG/4 ML VIAL IVP ONE (18:11)
[2021-11-16 20:03] LABS: Adenovirus Not Detected (Not Detect); Bordetella Pertussis Not Detected (Not Detect); Chlamydophila pneumoniae Not Detected (Not Detect); Coronavirus 229E Not Detected (Not Detect); Coronavirus HKU1 Not Detected (Not Detect); Coronavirus NL63 Not Detected (Not Detect); Coronavirus OC43 Not Detected (Not Detect); Human Metapneumovirus Not Detected (Not Detect); Human Rhinovirus/Enterovirus Not Detected (Not Detect); Influenza A Subtype 2009 H1 Not Detected (Not Detect); Influenza B Not Detected (Not Detect); Mycoplasma pneumoniae Not Detected (Not Detect); Parainfluenza Virus 1 Not Detected (Not Detect); Parainfluenza Virus 2 Not Detected (Not Detect); Parainfluenza Virus 3 Not Detected (Not Detect); Parainfluenza Virus 4 Not Detected (Not Detect); Respiratory Syncytial Virus Not Detected (Not Detect); SARS-CoV-2 Not Detected (Not Detect)
[2021-11-16] MEDS: Ipratropium/Albuterol Neb 3 ML IH SCH (20:42)
[2021-11-16 21:26] LABS: ABG Base Excess -2 mEq/L (-2 to 3); ABG HCO3 22 mEq/L (21-27); ABG Oxygen Saturation 97 % (95-98); ABG PCO2 32 mmHg (35-45); ABG PH 7.44 pH Units (7.32-7.45); ABG PO2 88 mmHg (85-104); ABG TCO2 23 mEq/L (20-26)
[2021-11-17] MEDS: Ipratropium/Albuterol Neb 3 ML IH SCH ×7 (00:49→23:09)
[2021-11-17] MEDS: Piperacillin/Tazobactam 3.375 GM in 0.9 % Sodium Chloride Mini Bag 100 ML IVPB SCH ×3 (01:54→16:21)
[2021-11-17 05:00] LABS: Basophils % 0.2 %; Eosinophils # 0.3 K/mcL (0.0-0.6); Eosinophils % 2.6 %; Hematocrit 21.2 % (35.3-44.9); Hemoglobin 7.2 g/dL (11.5-15.4); Immature Granulocytes % 1.8 % (0-4); Lymphocytes # 0.5 K/mcL (0.6-4.6); Lymphocytes % 4.4 %; Mean Corpuscular Hemoglobin 29.9 pg (28.0-33.3); Mean Platelet Volume 9.6 fL (9.4-12.4); Monocytes # 0.4 K/mcL (0.0-1.3); Monocytes % 3.5 %; Neutrophils # 9.2 K/mcL (1.6-8.9); Platelet Count 282 K/mcL (140-400); Red Blood Count 2.41 M/mcL (3.82-4.97); Segmented Neutrophils % 87.5 %; White Blood Count 10.5 K/mcL (4.3-11.1)
[2021-11-17] MEDS: *HR* Heparin 5,000 UNIT/ML VIAL SQ SCH ×2 (05:49→16:19)
[2021-11-17] MEDS ORDERED: Pantoprazole 40 MG VIAL IVP SCH (06:00)
[2021-11-17 07:11] LABS: Potassium 2.5 mEq/L (3.5-5.1)
[2021-11-17 10:45] LABS: Kappa Qnt Free Light Chains 33.58 mg/L (3.30-19.40)
[2021-11-17 10:46] LABS: Lambda Qnt Free Light Chains 42.33 mg/L (5.71-26.30)
[2021-11-17 10:49] LABS: ANA IgG by ELISA NONE DETECTED (None Detected)
[2021-11-17] MEDS: BuPROPion XL (24 HR) 150 MG TABLET PO SCH (10:49)
[2021-11-17] MEDS: Gabapentin 300 MG CAPSULE PO SCH ×2 (10:49→20:34)
[2021-11-17] MEDS: Albumin 25% 25gram/100mL 25 GM/100 ML IV.SOLN IVPB SCH ×2 (10:49→16:20)
[2021-11-17] MEDS: MethylPREDNISolone 40 MG/ML VIAL IVP SCH ×3 (14:06→23:12)
[2021-11-17] MEDS: Fluconazole 100 MG TABLET PO SCH (16:19)
[2021-11-17 16:59] LABS: ANCA IFA Titer <1:20 (<1:20)
[2021-11-18] MEDS: Piperacillin/Tazobactam 3.375 GM in 0.9 % Sodium Chloride Mini Bag 100 ML IVPB SCH ×3 (00:25→16:59)
[2021-11-18 03:17] LABS: Basophils % 0.2 %; Eosinophils % 0.2 %; Hematocrit 21.1 % (35.3-44.9); Immature Granulocytes % 1.1 % (0-4); Lymphocytes # 0.3 K/mcL (0.6-4.6); Lymphocytes % 4.3 %; Mean Corpuscular HGB Conc 33.2 g/dL (31.6-35.5); Mean Corpuscular Hemoglobin 29.5 pg (28.0-33.3); Mean Platelet Volume 9.8 fL (9.4-12.4); Monocytes # 0.1 K/mcL (0.0-1.3); Monocytes % 1.5 %; Neutrophils # 6.1 K/mcL (1.6-8.9); Platelet Count 274 K/mcL (140-400); Red Blood Count 2.37 M/mcL (3.82-4.97); Red Cell Distribution Width 15.4 % (11.5-14.5); Segmented Neutrophils % 92.7 %; White Blood Count 6.6 K/mcL (4.3-11.1)
[2021-11-18 03:32] LABS: BUN/Creatinine Ratio 21 (6-26); Blood Urea Nitrogen 16 mg/dL (6-20); Calcium 9.3 mg/dL (8.6-10.3); Carbon Dioxide 25 mEq/L (23-29); Chloride 108 mEq/L (98-107); Glucose 198 mg/dL (70-105); Iron < 10 mcg/dL (50-170); Osmolality,Calculated 303 (280-300); Potassium 3.6 mEq/L (3.5-5.1); Sodium 143 mEq/L (136-145); Transferrin 123 mg/dL (203-362)
[2021-11-18] MEDS: Ipratropium/Albuterol Neb 3 ML IH SCH ×6 (03:47→23:03)
[2021-11-18] MEDS: *HR* Heparin 5,000 UNIT/ML VIAL SQ SCH ×2 (05:32→17:36)
[2021-11-18] MEDS: MethylPREDNISolone 40 MG/ML VIAL IVP SCH ×3 (05:33→17:35)
[2021-11-18] MEDS: Gabapentin 300 MG CAPSULE PO SCH ×2 (08:15→20:30)
[2021-11-18] MEDS: BuPROPion XL (24 HR) 150 MG TABLET PO SCH (08:15)
[2021-11-18] MEDS: Pantoprazole 40 MG VIAL IVP SCH (08:18)
[2021-11-18] MEDS ORDERED: 0.9 % Sodium Chloride 250 ML IVC ONE (09:55)
[2021-11-18 10:43] LABS: ANCA IFA Pattern NONE DETECTED (None Detected); Serine Protease-3 Antibody 0 AU/mL (0-19)
[2021-11-18] MEDS: Fluconazole 100 MG TABLET PO SCH (16:58)
[2021-11-18] MEDS: *HR* OxyCODONE Immed Rel 5 MG TABLET PO PRN (17:36)
[2021-11-19] MEDS: Piperacillin/Tazobactam 3.375 GM in 0.9 % Sodium Chloride Mini Bag 100 ML IVPB SCH ×3 (00:10→17:51)
[2021-11-19] MEDS: MethylPREDNISolone 40 MG/ML VIAL IVP SCH ×4 (00:10→17:51)
[2021-11-19 02:16] LABS: Basophils % 0.1 %; Immature Granulocytes % 0.8 % (0-4); Lymphocytes # 0.4 K/mcL (0.6-4.6); Lymphocytes % 2.6 %; Mean Corpuscular HGB Conc 32.2 g/dL (31.6-35.5); Mean Corpuscular Hemoglobin 28.2 pg (28.0-33.3); Mean Corpuscular Volume 87.7 fL (83.0-100.0); Monocytes # 0.4 K/mcL (0.0-1.3); Monocytes % 2.8 %; Neutrophils # 12.7 K/mcL (1.6-8.9); Nucleated Red Blood Cells 0.4 /100 WBC (0); Platelet Count 336 K/mcL (140-400); Red Blood Count 3.08 M/mcL (3.82-4.97); Segmented Neutrophils % 93.7 %
[2021-11-19 02:17] LABS: Hemoglobin 8.7 g/dL (11.5-15.4); White Blood Count 13.5 K/mcL (4.3-11.1)
[2021-11-19 02:44] LABS: BUN/Creatinine Ratio 31 (6-26); Blood Urea Nitrogen 22 mg/dL (6-20); Calcium 9.1 mg/dL (8.6-10.3); Carbon Dioxide 22 mEq/L (23-29); Chloride 106 mEq/L (98-107); Glucose 279 mg/dL (70-105); Osmolality,Calculated 305 (280-300); Potassium 3.3 mEq/L (3.5-5.1); Sodium 141 mEq/L (136-145)
[2021-11-19] MEDS: Ipratropium/Albuterol Neb 3 ML IH SCH ×6 (03:59→23:29)
[2021-11-19] MEDS: *HR* Heparin 5,000 UNIT/ML VIAL SQ SCH ×2 (05:03→17:52)
[2021-11-19] MEDS: *HR* OxyCODONE Immed Rel 5 MG TABLET PO PRN (05:03)
[2021-11-19] MEDS: Pantoprazole 40 MG VIAL IVP SCH (09:14)
[2021-11-19] MEDS: Gabapentin 300 MG CAPSULE PO SCH ×2 (09:15→20:21)
[2021-11-19] MEDS: BuPROPion XL (24 HR) 150 MG TABLET PO SCH (09:15)
[2021-11-19] MEDS: Insulin LISPRO 300 UNITS/3 ML VIAL SUBQ SCH ×2 (13:10→17:51)
[2021-11-19] MEDS: Fluconazole 100 MG TABLET PO SCH (17:51)
[2021-11-19] MEDS ORDERED: Insulin LISPRO 300 UNITS/3 ML VIAL SUBQ SCH (21:00)
[2021-11-20] MEDS: MethylPREDNISolone 40 MG/ML VIAL IVP SCH ×3 (00:11→12:59)
[2021-11-20] MEDS: Piperacillin/Tazobactam 3.375 GM in 0.9 % Sodium Chloride Mini Bag 100 ML IVPB SCH ×2 (00:11→10:09)
[2021-11-20 02:58] LABS: Basophils % 0.1 %; Hematocrit 26.5 % (35.3-44.9); Hemoglobin 8.6 g/dL (11.5-15.4); Immature Granulocytes % 0.6 % (0-4); Lymphocytes # 0.3 K/mcL (0.6-4.6); Mean Corpuscular HGB Conc 32.5 g/dL (31.6-35.5); Mean Corpuscular Hemoglobin 28.6 pg (28.0-33.3); Mean Platelet Volume 10.2 fL (9.4-12.4); Monocytes # 0.4 K/mcL (0.0-1.3); Monocytes % 2.8 %; Neutrophils # 13.2 K/mcL (1.6-8.9); Nucleated Red Blood Cells 0.1 /100 WBC (0); Platelet Count 353 K/mcL (140-400); Red Blood Count 3.01 M/mcL (3.82-4.97); Red Cell Distribution Width 17.1 % (11.5-14.5); Segmented Neutrophils % 94.5 %; White Blood Count 13.9 K/mcL (4.3-11.1)
[2021-11-20 03:18] LABS: Calcium 8.7 mg/dL (8.6-10.3); Potassium 3.3 mEq/L (3.5-5.1)
[2021-11-20] MEDS: Ipratropium/Albuterol Neb 3 ML IH SCH ×4 (04:23→16:05)
[2021-11-20] MEDS: *HR* OxyCODONE Immed Rel 5 MG TABLET PO PRN (04:40)
[2021-11-20] MEDS: *HR* Heparin 5,000 UNIT/ML VIAL SQ SCH (04:46)
[2021-11-20] MEDS: Gabapentin 300 MG CAPSULE PO SCH (10:05)
[2021-11-20] MEDS: BuPROPion XL (24 HR) 150 MG TABLET PO SCH (10:05)
[2021-11-20] MEDS: Pantoprazole 40 MG VIAL IVP SCH (10:06)
[2021-11-20] MEDS: Insulin LISPRO 300 UNITS/3 ML VIAL SUBQ SCH ×2 (10:10→13:00)
[2021-11-20 10:35] VITALS: BP 123/58; PULSE 82; TEMP 97.8
[2021-11-20 10:57] VITALS: O2SAT 95
[2021-11-21 11:11] LABS: Alpha 2 Globulin (PEP) 1.07 g/dL (0.48-1.05); Beta Globulin (PEP) 0.71 g/dL (0.48-1.10)
[2021-11-21 11:31] LABS: IFE Reflexed IFE Done; Immunoglobulin A 313 mg/dL (68-408); Immunoglobulin G 594 mg/dL (768-1632); Immunoglobulin M 19 mg/dL (35-263)
== END 2021-11-20 19:00 | disposition home health service (06) | DRG 329 ==
LOC: 3ANU 14:12 → EMEROOARM 14:12 → SUATTDRO 21:47 → 3ANU 23:15 → 2NENU 11-16 22:51
PROVIDERS: ADMIT Internal Medicine; ATTEND Registered Nurse

== ENCOUNTER 2021-11-23 10:20 | Inpatient (IN) ==
[2021-11-23] MEDS ORDERED: Ondansetron 4 MG/2 ML VIAL IVP STA (10:40)
[2021-11-23] MEDS ORDERED: Iopamidol - 370 500 ML MLS IVP ONE (10:40)
[2021-11-23] MEDS ORDERED: 0.9 % Sodium Chloride 1,000 ML IVC SCH (10:45)
[2021-11-23] MEDS ORDERED: methylPREDNISolone 125 MG in 0.9 % Sodium Chloride 100 ML IVPB ONE (10:50)
[2021-11-23] MEDS ORDERED: Acetaminophen 650 MG RECTAL SUPP RC ONE (10:50)
[2021-11-23] MEDS ORDERED: Ipratropium/Albuterol Neb 3 ML IH ONE (10:50)
[2021-11-23] MEDS ORDERED: methylPREDNISolone 125 MG/2 ML VIAL IVP ONE (10:52)
[2021-11-23 10:53] LABS: ABG Base Excess 0 mEq/L (-2 to 3); ABG HCO3 22 mEq/L (21-27); ABG Oxygen Saturation 95 % (95-98); ABG PCO2 26 mmHg (35-45); ABG PH 7.53 pH Units (7.32-7.45); ABG PO2 66 mmHg (85-104); ABG TCO2 22 mEq/L (20-26)
[2021-11-23] MEDS ORDERED: 0.9 % Sodium Chloride 500 ML IVC ONE (11:22)
[2021-11-23 11:23] LABS: INR 1.4
[2021-11-23 11:26] LABS: Activated Partial Thrombo Time 24.6 Seconds (26.0-36.0)
[2021-11-23 11:29] LABS: Albumin 3.6 g/dL (3.5-5.7); Albumin/Globulin Ratio 1.3 (1.1-2.2); Bilirubin,Direct 0.6 mg/dL (0.0-0.2); Bilirubin,Indirect 0.7 mg/dL (0.0-1.0); Bilirubin,Total 1.3 mg/dL (0.3-1.0); Calcium 8.3 mg/dL (8.6-10.3); Globulin 2.7 g/dL (2.4-3.5); Magnesium 1.4 mg/dL (1.6-2.6); Phosphorous 3.4 mg/dL (2.7-4.5); Potassium 2.9 mEq/L (3.5-5.1); Total Protein 6.3 g/dL (6.4-8.9)
[2021-11-23 11:35] LABS: Troponin I 7.3 ng/mL (< 0.04)
[2021-11-23 12:07] LABS: Mean Platelet Volume 11.1 fL (9.4-12.4)
[2021-11-23 12:09] LABS: Hematocrit 32.1 % (35.3-44.9); Hemoglobin 10.4 g/dL (11.5-15.4); Mean Corpuscular HGB Conc 32.4 g/dL (31.6-35.5); Mean Corpuscular Hemoglobin 28.9 pg (28.0-33.3); Mean Corpuscular Volume 89.2 fL (83.0-100.0); Nucleated Red Blood Cells 0.3 /100 WBC (0); Platelet Count 199 K/mcL (140-400); Red Cell Distribution Width 16.6 % (11.5-14.5)
[2021-11-23 12:15] LABS: Bilirubin,Urine Negative (Negative); Blood,Urine Large (Negative); Clarity,Urine Ex.Turbid (Clear); Color,Urine Light-Orange (Yellow); Glucose,Urine (UA) Normal (Normal); Ketones,Urine Trace mg/dL (Negative); Leukocyte Esterase,Urine Small (Negative); Mucus,Urine Few per lpf (None-Few); Nitrite,Urine Negative (Negative); Protein,Urine 200 mg/dL (Neg-Trace); RBC,Urine TNTC per hpf (0-3); Urobilinogen,Urine Normal (Normal); WBC,Urine 50-100 per hpf (0-3)
[2021-11-23] MEDS ORDERED: Piperacillin/Tazobactam 3.375 GM in 0.9 % Sodium Chloride Mini Bag 100 ML IVPB ONE (12:27)
[2021-11-23] MEDS ORDERED: *HR* Heparin 5,000 UNIT/ML VIAL IVP ONE (12:28)
[2021-11-23] MEDS ORDERED: *HR* Heparin 5,000 UNIT/ML VIAL IVP PRN ×2 (12:28)
[2021-11-23 12:29] LABS: White Blood Count 30.7 K/mcL (4.3-11.1)
[2021-11-23] MEDS: Heparin 25,000UNIT/250ML 1/2NS 25,000 UNIT/250 ML IV.SOLN IVC SCH (12:52)
[2021-11-23 12:53] LABS: Anisocytosis 1+ (Not Present); Lymphocytes # 0.6 K/mcL (0.6-4.6); Monocytes # 1.2 K/mcL (0.0-1.3); Neutrophils # 28.9 K/mcL (1.6-8.9); Platelet Estimate Normal (Normal); Poikilocytosis 1+ (Not Present)
[2021-11-23 13:17] LABS: Hematocrit 29.2 % (35.3-44.9); Hemoglobin 9.4 g/dL (11.5-15.4); Mean Corpuscular HGB Conc 32.2 g/dL (31.6-35.5); Mean Corpuscular Hemoglobin 28.7 pg (28.0-33.3); Mean Platelet Volume 11.3 fL (9.4-12.4); Platelet Count 123 K/mcL (140-400); Red Blood Count 3.28 M/mcL (3.82-4.97); Red Cell Distribution Width 16.7 % (11.5-14.5); White Blood Count 23.7 K/mcL (4.3-11.1)
[2021-11-23 13:24] LABS: INR 1.5
[2021-11-23] MEDS ORDERED: Albumin 25% 25gram/100mL 25 GM/100 ML IV.SOLN IVPB ONE (13:24)
[2021-11-23] MEDS ORDERED: Naloxone 0.4 MG/ML INJ IVP PRN (13:25)
[2021-11-23 13:28] LABS: Heparin anti-factor XA UFH < 0.04 IU/mL (0.30-0.70)
[2021-11-23] MEDS ORDERED: Vancomycin (wt based) 1,000 MG VIAL IVPB SCH (14:00)
[2021-11-23] MEDS ORDERED: Acetaminophen 325 MG TABLET PO PRN (14:16)
[2021-11-23 15:32] LABS: Adenovirus Not Detected (Not Detect); Bordetella Pertussis Not Detected (Not Detect); Chlamydophila pneumoniae Not Detected (Not Detect); Coronavirus 229E Not Detected (Not Detect); Coronavirus HKU1 Not Detected (Not Detect); Coronavirus NL63 Not Detected (Not Detect); Coronavirus OC43 Not Detected (Not Detect); Human Metapneumovirus Not Detected (Not Detect); Human Rhinovirus/Enterovirus Not Detected (Not Detect); Influenza A Subtype 2009 H1 Not Detected (Not Detect); Influenza B Not Detected (Not Detect); Mycoplasma pneumoniae Not Detected (Not Detect); Parainfluenza Virus 1 Not Detected (Not Detect); Parainfluenza Virus 2 Not Detected (Not Detect); Parainfluenza Virus 3 Not Detected (Not Detect); Parainfluenza Virus 4 Not Detected (Not Detect); Respiratory Syncytial Virus Not Detected (Not Detect); SARS-CoV-2 Not Detected (Not Detect)
[2021-11-23] MEDS ORDERED: Potassium Phosphate 44 MEQ in 0.9 % Sodium Chloride 250 ML IVPB PRN (15:49)
[2021-11-23] MEDS ORDERED: Calcium Gluconate 1gm/50mL 1 GM/50 ML BAG IVPB PRN (15:49)
[2021-11-23] MEDS ORDERED: Dextrose Gel 15 GM/37.5 ML TUBE PO PRN ×2 (15:50)
[2021-11-23] MEDS ORDERED: D5% in Water 1,000 ML IVC PRN (15:50)
[2021-11-23] MEDS ORDERED: *HR* Dextrose 50 % in Water (Syg) 50 ML SYRINGE IVP PRN (15:50)
[2021-11-23] MEDS: Norepinephrine 4 MG/254 ML IV.SOLN IVC SCH (15:56)
[2021-11-23] MEDS ORDERED: Insulin LISPRO 300 UNITS/3 ML VIAL SUBQ SCH ×2 (16:30→21:00)
[2021-11-23] MEDS: Albumin Human 5% 12.5 GM/250 ML IV.SOLN IVC SCH ×2 (17:15→21:07)
[2021-11-23] MEDS ORDERED: Piperacillin/Tazobactam 3.375 GM in 0.9 % Sodium Chloride Mini Bag 100 ML IVPB SCH ×2 (18:00→19:00)
[2021-11-23] MEDS: Insulin LISPRO 300 UNITS/3 ML VIAL SUBQ SCH ×2 (18:52→23:53)
[2021-11-23 18:58] LABS: VBG Ionized Calcium 0.92 mmol/L (1.15-1.35)
[2021-11-23 19:21] LABS: Calcium 7.5 mg/dL (8.6-10.3); Potassium 4.2 mEq/L (3.5-5.1); Troponin I 9.73 ng/mL (< 0.04)
[2021-11-23] MEDS: Aspirin Enteric Coated 81 MG Tablet PO SCH (21:10)
[2021-11-23] MEDS: Vancomycin 1,250 MG/262.5 ML IV.SOLN IVPB SCH (23:39)
[2021-11-23] MEDS: Meropenem 1,000 MG in Water for inj. (sterile) 20 ML IVP SCH (23:39)
[2021-11-24] MEDS: Norepinephrine 4 MG/254 ML IV.SOLN IVC SCH (02:39)
[2021-11-24 04:47] LABS: Hemoglobin 8.1 g/dL (11.5-15.4)
[2021-11-24 04:49] LABS: Eosinophils % 0.1 %; Hematocrit 25.8 % (35.3-44.9); Immature Granulocytes % 0.5 % (0-4); Immature Platelets 10.8 % (1.1-6.1); Lymphocytes # 0.4 K/mcL (0.6-4.6); Lymphocytes % 3.7 %; Mean Corpuscular HGB Conc 31.4 g/dL (31.6-35.5); Mean Corpuscular Hemoglobin 28.1 pg (28.0-33.3); Mean Corpuscular Volume 89.6 fL (83.0-100.0); Mean Platelet Volume 11.2 fL (9.4-12.4); Monocytes # 0.4 K/mcL (0.0-1.3); Monocytes % 3.3 %; Neutrophils # 10.6 K/mcL (1.6-8.9); Platelet Count 125 K/mcL (140-400); Red Blood Count 2.88 M/mcL (3.82-4.97); Segmented Neutrophils % 92.4 %; White Blood Count 11.5 K/mcL (4.3-11.1)
[2021-11-24 05:07] LABS: Albumin 3.7 g/dL (3.5-5.7); Albumin/Globulin Ratio 1.7 (1.1-2.2); Bilirubin,Total 1.1 mg/dL (0.3-1.0); Calcium 7.9 mg/dL (8.6-10.3); Globulin 2.2 g/dL (2.4-3.5); Magnesium 1.7 mg/dL (1.6-2.6); Phosphorous 3.9 mg/dL (2.7-4.5); Potassium 3.9 mEq/L (3.5-5.1); Total Protein 5.9 g/dL (6.4-8.9)
[2021-11-24] MEDS: Insulin LISPRO 300 UNITS/3 ML VIAL SUBQ SCH ×2 (05:24→12:05)
[2021-11-24] MEDS ORDERED: Furosemide 20 MG/2 ML VIAL IVP ONE ×2 (06:21→06:24)
[2021-11-24] MEDS: Aspirin Enteric Coated 81 MG Tablet PO SCH (08:43)
[2021-11-24] MEDS: Meropenem 1,000 MG in Water for inj. (sterile) 20 ML IVP SCH ×2 (09:04→17:24)
[2021-11-24 11:45] LABS: VBG Ionized Calcium 1.09 mmol/L (1.15-1.35)
[2021-11-24] MEDS: Vancomycin 1,250 MG/262.5 ML IV.SOLN IVPB SCH (14:05)
[2021-11-24] MEDS: Heparin 25,000UNIT/250ML 1/2NS 25,000 UNIT/250 ML IV.SOLN IVC SCH (15:19)
[2021-11-24] MEDS ORDERED: Naloxone 0.4 MG/ML INJ IVP PRN (19:03)
[2021-11-24] MEDS ORDERED: Dextrose Gel 15 GM/37.5 ML TUBE PO PRN ×2 (19:03)
[2021-11-24] MEDS ORDERED: D5% in Water 1,000 ML IVC PRN (19:03)
[2021-11-24] MEDS ORDERED: Acetaminophen 325 MG TABLET PO PRN (19:03)
[2021-11-24] MEDS ORDERED: *HR* Dextrose 50 % in Water (Syg) 50 ML SYRINGE IVP PRN (19:03)
[2021-11-24] MEDS ORDERED: *HR* Heparin 5,000 UNIT/ML VIAL IVP PRN ×2 (19:03)
[2021-11-24] MEDS ORDERED: Insulin LISPRO 300 UNITS/3 ML VIAL SUBQ SCH (21:00)
[2021-11-25] MEDS: Meropenem 1,000 MG in Water for inj. (sterile) 20 ML IVP SCH ×3 (00:44→16:50)
[2021-11-25] MEDS: Vancomycin 1,250 MG/262.5 ML IV.SOLN IVPB SCH ×2 (00:54→13:09)
[2021-11-25 02:25] LABS: Basophils % 0.1 %; Eosinophils # 0.5 K/mcL (0.0-0.6); Eosinophils % 3.6 %; Hematocrit 25.2 % (35.3-44.9); Immature Granulocytes % 0.7 % (0-4); Lymphocytes # 0.6 K/mcL (0.6-4.6); Lymphocytes % 4.3 %; Mean Corpuscular HGB Conc 31.7 g/dL (31.6-35.5); Mean Corpuscular Hemoglobin 28.9 pg (28.0-33.3); Mean Platelet Volume 11.3 fL (9.4-12.4); Monocytes # 0.3 K/mcL (0.0-1.3); Monocytes % 2.4 %; Neutrophils # 11.9 K/mcL (1.6-8.9); Nucleated Red Blood Cells 0.2 /100 WBC (0); Platelet Count 129 K/mcL (140-400); Red Blood Count 2.77 M/mcL (3.82-4.97); Red Cell Distribution Width 17.2 % (11.5-14.5); Segmented Neutrophils % 88.9 %; White Blood Count 13.4 K/mcL (4.3-11.1)
[2021-11-25] MEDS ORDERED: Insulin LISPRO 300 UNITS/3 ML VIAL SUBQ SCH (07:30)
[2021-11-25] MEDS: Aspirin Enteric Coated 81 MG Tablet PO SCH (09:45)
[2021-11-25] MEDS ORDERED: Furosemide 20 MG/2 ML VIAL IVP ONE (11:09)
[2021-11-25] MEDS: Heparin 25,000UNIT/250ML 1/2NS 25,000 UNIT/250 ML IV.SOLN IVC SCH (11:40)
[2021-11-25 12:15] LABS: Vancomycin,Trough 19 mcg/mL (5-10)
[2021-11-25 12:39] LABS: BUN/Creatinine Ratio 34 (6-26); Blood Urea Nitrogen 26 mg/dL (6-20); Calcium 8.2 mg/dL (8.6-10.3); Carbon Dioxide 28 mEq/L (23-29); Chloride 107 mEq/L (98-107); Glucose 149 mg/dL (70-105); Osmolality,Calculated 300 (280-300); Potassium 4.1 mEq/L (3.5-5.1); Sodium 141 mEq/L (136-145)
[2021-11-26] MEDS: Vancomycin 1,250 MG/262.5 ML IV.SOLN IVPB SCH (00:13)
[2021-11-26] MEDS: Meropenem 1,000 MG in Water for inj. (sterile) 20 ML IVP SCH ×2 (00:13→08:59)
[2021-11-26 02:11] LABS: Hematocrit 26.2 % (35.3-44.9); Hemoglobin 8.2 g/dL (11.5-15.4); Mean Corpuscular HGB Conc 31.3 g/dL (31.6-35.5); Mean Corpuscular Hemoglobin 28.6 pg (28.0-33.3); Mean Corpuscular Volume 91.3 fL (83.0-100.0); Platelet Count 150 K/mcL (140-400); Red Blood Count 2.87 M/mcL (3.82-4.97); Red Cell Distribution Width 16.7 % (11.5-14.5); White Blood Count 10.7 K/mcL (4.3-11.1)
[2021-11-26 02:30] LABS: BUN/Creatinine Ratio 28 (6-26); Blood Urea Nitrogen 20 mg/dL (6-20); Calcium 7.8 mg/dL (8.6-10.3); Carbon Dioxide 29 mEq/L (23-29); Chloride 105 mEq/L (98-107); Glucose 134 mg/dL (70-105); Osmolality,Calculated 297 (280-300); Potassium 3.8 mEq/L (3.5-5.1); Sodium 141 mEq/L (136-145)
[2021-11-26 04:28] LABS: ABG Base Excess 3 mEq/L (-2 to 3); ABG HCO3 27 mEq/L (21-27); ABG Oxygen Saturation 98 % (95-98); ABG PCO2 40 mmHg (35-45); ABG PH 7.45 pH Units (7.32-7.45); ABG PO2 101 mmHg (85-104); ABG TCO2 29 mEq/L (20-26)
[2021-11-26] MEDS ORDERED: Furosemide 20 MG/2 ML VIAL IVP ONE (04:35)
[2021-11-26] MEDS: Heparin 25,000UNIT/250ML 1/2NS 25,000 UNIT/250 ML IV.SOLN IVC SCH (05:46)
[2021-11-26] MEDS: Aspirin Enteric Coated 81 MG Tablet PO SCH (08:57)
[2021-11-26] MEDS: Furosemide 40 MG/4 ML VIAL IVP SCH (08:58)
[2021-11-26] MEDS: Albumin 25% 25gram/100mL 25 GM/100 ML IV.SOLN IVPB SCH ×2 (17:09→22:53)
[2021-11-27 04:06] LABS: Hematocrit 26.5 % (35.3-44.9); Hemoglobin 8.6 g/dL (11.5-15.4); Mean Corpuscular HGB Conc 32.5 g/dL (31.6-35.5); Mean Corpuscular Hemoglobin 29.2 pg (28.0-33.3); Mean Corpuscular Volume 89.8 fL (83.0-100.0); Mean Platelet Volume 11.1 fL (9.4-12.4); Platelet Count 181 K/mcL (140-400); Red Blood Count 2.95 M/mcL (3.82-4.97); Red Cell Distribution Width 16.3 % (11.5-14.5); White Blood Count 9.2 K/mcL (4.3-11.1)
[2021-11-27 04:25] LABS: BUN/Creatinine Ratio 30 (6-26); Blood Urea Nitrogen 21 mg/dL (6-20); Calcium 8.4 mg/dL (8.6-10.3); Carbon Dioxide 32 mEq/L (23-29); Chloride 101 mEq/L (98-107); Glucose 124 mg/dL (70-105); Osmolality,Calculated 298 (280-300); Potassium 3.5 mEq/L (3.5-5.1); Sodium 142 mEq/L (136-145)
[2021-11-27] MEDS: Aspirin Enteric Coated 81 MG Tablet PO SCH (08:41)
[2021-11-27] MEDS: Furosemide 40 MG/4 ML VIAL IVP SCH (08:41)
[2021-11-27] MEDS: Albumin 25% 25gram/100mL 25 GM/100 ML IV.SOLN IVPB SCH ×3 (08:42→23:22)
[2021-11-27 14:55] LABS: Influenza A PCR Negative (Negative); Influenza B PCR Negative (Negative); Resp. Syncytial Virus PCR Negative (Negative); SARS-CoV-2 by PCR (In House) Negative (Negative)
[2021-11-27] MEDS ORDERED: Cefdinir 300 MG CAPSULE PO ONE (15:38)
[2021-11-27] MEDS ORDERED: Doxycycline 100 MG CAPSULE PO ONE (15:38)
[2021-11-27] MEDS: *HR* Heparin 5,000 UNIT/ML VIAL SQ SCH ×2 (15:40→21:52)
[2021-11-27] MEDS ORDERED: Furosemide 40 MG/4 ML VIAL IVP ONE (18:00)
[2021-11-27] MEDS: Cefdinir 300 MG CAPSULE PO SCH (21:51)
[2021-11-27] MEDS: Doxycycline 100 MG CAPSULE PO SCH (21:52)
[2021-11-28 01:52] LABS: Hematocrit 26.4 % (35.3-44.9); Hemoglobin 8.5 g/dL (11.5-15.4); Mean Corpuscular HGB Conc 32.2 g/dL (31.6-35.5); Mean Corpuscular Hemoglobin 28.6 pg (28.0-33.3); Mean Corpuscular Volume 88.9 fL (83.0-100.0); Mean Platelet Volume 11.2 fL (9.4-12.4); Platelet Count 225 K/mcL (140-400); Red Blood Count 2.97 M/mcL (3.82-4.97); White Blood Count 10.7 K/mcL (4.3-11.1)
[2021-11-28 01:53] LABS: Calcium 10.1 mg/dL (8.6-10.3); Potassium 3.4 mEq/L (3.5-5.1)
[2021-11-28] MEDS: Ipratropium/Albuterol Neb 3 ML IH PRN (04:28)
[2021-11-28] MEDS: *HR* Heparin 5,000 UNIT/ML VIAL SQ SCH ×3 (05:44→21:41)
[2021-11-28] MEDS ORDERED: Magnesium Oxide 400 MG TABLET PO ONE (06:34)
[2021-11-28] MEDS: Doxycycline 100 MG CAPSULE PO SCH ×3 (08:31→21:41)
[2021-11-28] MEDS: Cefdinir 300 MG CAPSULE PO SCH ×2 (08:31→08:32)
[2021-11-28] MEDS: Albumin 25% 25gram/100mL 25 GM/100 ML IV.SOLN IVPB SCH ×2 (08:32→15:37)
[2021-11-28] MEDS: Furosemide 40 MG/4 ML VIAL IVP SCH (08:32)
[2021-11-28] MEDS: Aspirin Enteric Coated 81 MG Tablet PO SCH (08:32)
[2021-11-28] MEDS ORDERED: Furosemide 40 MG/4 ML VIAL IVP ONE (18:00)
[2021-11-28] MEDS: Budesonide/Formoterol 160/4.5 1 PUFF INH IH SCH (21:09)
[2021-11-29] MEDS: Ipratropium/Albuterol Neb 3 ML IH PRN ×3 (04:40→16:29)
[2021-11-29 05:15] LABS: Basophils % 0.2 %; Eosinophils # 0.7 K/mcL (0.0-0.6); Eosinophils % 5.5 %; Hematocrit 31.2 % (35.3-44.9); Immature Granulocytes % 0.5 % (0-4); Lymphocytes # 0.7 K/mcL (0.6-4.6); Mean Corpuscular HGB Conc 32.1 g/dL (31.6-35.5); Mean Corpuscular Hemoglobin 28.2 pg (28.0-33.3); Mean Corpuscular Volume 88.1 fL (83.0-100.0); Monocytes # 0.7 K/mcL (0.0-1.3); Monocytes % 5.1 %; Neutrophils # 10.8 K/mcL (1.6-8.9); Platelet Count 312 K/mcL (140-400); Red Blood Count 3.54 M/mcL (3.82-4.97); Red Cell Distribution Width 16.2 % (11.5-14.5); Segmented Neutrophils % 83.7 %; White Blood Count 12.9 K/mcL (4.3-11.1)
[2021-11-29] MEDS: *HR* Heparin 5,000 UNIT/ML VIAL SQ SCH ×3 (05:18→23:59)
[2021-11-29 05:31] LABS: Albumin 5.6 g/dL (3.5-5.7); Albumin/Globulin Ratio 2.2 (1.1-2.2); Bilirubin,Direct 0.3 mg/dL (0.0-0.2); Bilirubin,Indirect 0.8 mg/dL (0.0-1.0); Bilirubin,Total 1.1 mg/dL (0.3-1.0); Calcium 10.7 mg/dL (8.6-10.3); Globulin 2.6 g/dL (2.4-3.5); Magnesium 2.3 mg/dL (1.6-2.6); Potassium 3.9 mEq/L (3.5-5.1); Total Protein 8.2 g/dL (6.4-8.9)
[2021-11-29] MEDS: Budesonide/Formoterol 160/4.5 1 PUFF INH IH SCH ×2 (07:43→20:42)
[2021-11-29] MEDS: Furosemide 40 MG/4 ML VIAL IVP SCH (08:57)
[2021-11-29] MEDS: Aspirin Enteric Coated 81 MG Tablet PO SCH (08:58)
[2021-11-29] MEDS ORDERED: levoFLOXacin 500 MG TABLET PO SCH (09:00)
[2021-11-29] MEDS ORDERED: *HR* LORazepam 2 MG/ML VIAL IVP ONE ×2 (16:37→23:52)
[2021-11-29] MEDS ORDERED: Albumin 25% 25gram/100mL 25 GM/100 ML IV.SOLN IVPB ONE (23:51)
[2021-11-30 03:10] LABS: ABG Base Excess 3 mEq/L (-2 to 3); ABG HCO3 26 mEq/L (21-27); ABG Oxygen Saturation 95 % (95-98); ABG PCO2 34 mmHg (35-45); ABG PH 7.49 pH Units (7.32-7.45); ABG PO2 68 mmHg (85-104); ABG TCO2 27 mEq/L (20-26); Blood Gas Pressure Support 6 cm H2O
[2021-11-30] MEDS: *HR* Heparin 5,000 UNIT/ML VIAL SQ SCH ×3 (05:47→21:28)
[2021-11-30] MEDS: Budesonide/Formoterol 160/4.5 1 PUFF INH IH SCH ×2 (07:18→19:56)
[2021-11-30 07:40] LABS: Basophils % 0.4 %; Eosinophils # 0.9 K/mcL (0.0-0.6); Eosinophils % 8.5 %; Hematocrit 29.9 % (35.3-44.9); Hemoglobin 9.7 g/dL (11.5-15.4); Immature Granulocytes % 0.7 % (0-4); Lymphocytes # 0.6 K/mcL (0.6-4.6); Lymphocytes % 5.8 %; Mean Corpuscular HGB Conc 32.4 g/dL (31.6-35.5); Mean Corpuscular Hemoglobin 28.5 pg (28.0-33.3); Mean Corpuscular Volume 87.9 fL (83.0-100.0); Mean Platelet Volume 10.7 fL (9.4-12.4); Monocytes # 0.7 K/mcL (0.0-1.3); Monocytes % 6.6 %; Neutrophils # 8.1 K/mcL (1.6-8.9); Platelet Count 321 K/mcL (140-400); Red Cell Distribution Width 16.3 % (11.5-14.5); White Blood Count 10.4 K/mcL (4.3-11.1)
[2021-11-30 07:54] LABS: Calcium 10.4 mg/dL (8.6-10.3); Potassium 3.4 mEq/L (3.5-5.1)
[2021-11-30] MEDS: Furosemide 40 MG/4 ML VIAL IVP SCH (10:17)
[2021-11-30] MEDS: Aspirin Enteric Coated 81 MG Tablet PO SCH (10:18)
[2021-11-30] MEDS: Cefdinir 300 MG CAPSULE PO SCH ×2 (14:45→14:47)
[2021-11-30] MEDS: Doxycycline 100 MG CAPSULE PO SCH ×2 (14:45→14:47)
[2021-11-30] MEDS: cefTRIAXone 1,000 MG in 0.9 % Sodium Chloride 10 ML IVP SCH (19:03)
[2021-11-30] MEDS ORDERED: Cefdinir 300 MG CAPSULE PO SCH (21:00)
[2021-11-30] MEDS ORDERED: Doxycycline 100 MG CAPSULE PO SCH (21:00)
[2021-12-01 01:11] LABS: Basophils % 0.2 %; Eosinophils # 1.1 K/mcL (0.0-0.6); Eosinophils % 9.4 %; Hematocrit 32.6 % (35.3-44.9); Hemoglobin 10.5 g/dL (11.5-15.4); Immature Granulocytes % 0.7 % (0-4); Lymphocytes # 0.7 K/mcL (0.6-4.6); Lymphocytes % 6.1 %; Mean Corpuscular HGB Conc 32.2 g/dL (31.6-35.5); Mean Corpuscular Hemoglobin 28.9 pg (28.0-33.3); Mean Corpuscular Volume 89.8 fL (83.0-100.0); Mean Platelet Volume 10.7 fL (9.4-12.4); Monocytes # 0.9 K/mcL (0.0-1.3); Monocytes % 7.2 %; Neutrophils # 9.2 K/mcL (1.6-8.9); Platelet Count 355 K/mcL (140-400); Red Blood Count 3.63 M/mcL (3.82-4.97); Segmented Neutrophils % 76.4 %
[2021-12-01 01:45] LABS: Calcium 10.2 mg/dL (8.6-10.3); Magnesium 2.3 mg/dL (1.6-2.6); Potassium 3.4 mEq/L (3.5-5.1)
[2021-12-01] MEDS: Doxycycline 100 MG in 0.9 % Sodium Chloride Mini Bag 100 ML IVPB SCH ×2 (05:36→18:16)
[2021-12-01] MEDS: *HR* Heparin 5,000 UNIT/ML VIAL SQ SCH ×3 (05:36→20:00)
[2021-12-01] MEDS: Budesonide/Formoterol 160/4.5 1 PUFF INH IH SCH ×2 (08:07→22:39)
[2021-12-01 09:31] LABS: VBG HCO3 28 mEq/L (21-27); VBG PCO2 49 mmHg (41-51); VBG PH 7.37 pH Units (7.32-7.42); VBG PO2 72 mmHg (25-50)
[2021-12-01] MEDS: Aspirin Enteric Coated 81 MG Tablet PO SCH (09:34)
[2021-12-01] MEDS ORDERED: *HR* LORazepam 2 MG/ML VIAL IVP ONE ×2 (10:50→14:57)
[2021-12-01] MEDS ORDERED: Saliva Stimulant 44.3ml BOTTLE PO PRN (11:20)
[2021-12-01] MEDS ORDERED: *HR* LORazepam 2 MG/ML VIAL IVP PRN (15:03)
[2021-12-01 17:34] LABS: Sodium, Urine 31.8 mEq/L
[2021-12-01] MEDS: cefTRIAXone 1,000 MG in 0.9 % Sodium Chloride 10 ML IVP SCH (18:18)
[2021-12-02] MEDS ORDERED: *HR* LORazepam 2 MG/ML VIAL IVP ONE (03:55)
[2021-12-02 04:28] LABS: Basophils # 0.1 K/mcL (0.0-0.2); Basophils % 0.4 %; Eosinophils # 1.5 K/mcL (0.0-0.6); Eosinophils % 9.8 %; Hematocrit 34.1 % (35.3-44.9); Hemoglobin 10.7 g/dL (11.5-15.4); Immature Granulocytes % 0.5 % (0-4); Lymphocytes # 1.4 K/mcL (0.6-4.6); Lymphocytes % 9.7 %; Mean Corpuscular HGB Conc 31.4 g/dL (31.6-35.5); Mean Corpuscular Hemoglobin 28.1 pg (28.0-33.3); Mean Corpuscular Volume 89.5 fL (83.0-100.0); Mean Platelet Volume 10.5 fL (9.4-12.4); Monocytes # 1.1 K/mcL (0.0-1.3); Monocytes % 7.4 %; Neutrophils # 10.7 K/mcL (1.6-8.9); Platelet Count 449 K/mcL (140-400); Red Blood Count 3.81 M/mcL (3.82-4.97); Red Cell Distribution Width 15.9 % (11.5-14.5); Segmented Neutrophils % 72.2 %; White Blood Count 14.8 K/mcL (4.3-11.1)
[2021-12-02 04:50] LABS: Calcium 10.4 mg/dL (8.6-10.3); Potassium 4.1 mEq/L (3.5-5.1)
[2021-12-02] MEDS: *HR* Heparin 5,000 UNIT/ML VIAL SQ SCH (05:23)
[2021-12-02] MEDS: Doxycycline 100 MG in 0.9 % Sodium Chloride Mini Bag 100 ML IVPB SCH ×2 (05:24→17:27)
[2021-12-02] MEDS: Budesonide/Formoterol 160/4.5 1 PUFF INH IH SCH ×2 (07:31→20:27)
[2021-12-02] MEDS ORDERED: *HR* LORazepam 2 MG/ML VIAL IVP PRN (08:57)
[2021-12-02] MEDS: Morphine Sulfate Oral CONC 10 MG/0.5 ML ORAL.SYG SL PRN ×2 (09:48→17:41)
[2021-12-02] MEDS: Aspirin Enteric Coated 81 MG Tablet PO SCH (09:50)
[2021-12-02] MEDS: Pregabalin 50 MG CAPSULE PO SCH ×4 (10:02→22:44)
[2021-12-02] MEDS ORDERED: *HR* Heparin 5,000 UNIT/ML VIAL IVP ONE (12:27)
[2021-12-02] MEDS ORDERED: *HR* Heparin 5,000 UNIT/ML VIAL IVP PRN ×2 (12:27)
[2021-12-02] MEDS: Heparin 25,000UNIT/250ML 1/2NS 25,000 UNIT/250 ML IV.SOLN IVC SCH (13:41)
[2021-12-02] MEDS: cefTRIAXone 1,000 MG in 0.9 % Sodium Chloride 10 ML IVP SCH (19:39)
[2021-12-03 03:28] LABS: Basophils # 0.1 K/mcL (0.0-0.2); Basophils % 0.5 %; Eosinophils # 1.4 K/mcL (0.0-0.6); Eosinophils % 8.4 %; Hematocrit 31.4 % (35.3-44.9); Hemoglobin 9.9 g/dL (11.5-15.4); Immature Granulocytes % 0.7 % (0-4); Lymphocytes # 0.6 K/mcL (0.6-4.6); Lymphocytes % 3.9 %; Mean Corpuscular HGB Conc 31.5 g/dL (31.6-35.5); Mean Corpuscular Hemoglobin 28.5 pg (28.0-33.3); Mean Corpuscular Volume 90.5 fL (83.0-100.0); Mean Platelet Volume 10.5 fL (9.4-12.4); Monocytes # 1.2 K/mcL (0.0-1.3); Monocytes % 7.2 %; Neutrophils # 12.9 K/mcL (1.6-8.9); Platelet Count 365 K/mcL (140-400); Red Blood Count 3.47 M/mcL (3.82-4.97); Red Cell Distribution Width 15.5 % (11.5-14.5); Segmented Neutrophils % 79.3 %; White Blood Count 16.3 K/mcL (4.3-11.1)
[2021-12-03 03:38] LABS: Heparin anti-factor XA UFH 0.46 IU/mL (0.30-0.70)
[2021-12-03 03:45] LABS: Calcium 9.8 mg/dL (8.6-10.3); Potassium 3.8 mEq/L (3.5-5.1)
[2021-12-03 04:24] LABS: INR 1.3; Prothrombin Time 14.9 Seconds (9.4-12.1)
[2021-12-03] MEDS: Doxycycline 100 MG in 0.9 % Sodium Chloride Mini Bag 100 ML IVPB SCH ×2 (06:00→18:07)
[2021-12-03] MEDS: Morphine Sulfate Oral CONC 10 MG/0.5 ML ORAL.SYG SL PRN ×3 (06:40→18:05)
[2021-12-03] MEDS: Budesonide/Formoterol 160/4.5 1 PUFF INH IH SCH ×2 (08:10→20:02)
[2021-12-03] MEDS: Aspirin Enteric Coated 81 MG Tablet PO SCH (08:51)
[2021-12-03] MEDS: Pregabalin 50 MG CAPSULE PO SCH ×3 (08:51→21:00)
[2021-12-03] MEDS: Heparin 25,000UNIT/250ML 1/2NS 25,000 UNIT/250 ML IV.SOLN IVC SCH (16:34)
[2021-12-03] MEDS: cefTRIAXone 1,000 MG in 0.9 % Sodium Chloride 10 ML IVP SCH (19:25)
[2021-12-04 03:34] LABS: Hematocrit 32.3 % (35.3-44.9); Hemoglobin 9.9 g/dL (11.5-15.4); Mean Corpuscular HGB Conc 30.7 g/dL (31.6-35.5); Mean Corpuscular Hemoglobin 28.5 pg (28.0-33.3); Mean Corpuscular Volume 93.1 fL (83.0-100.0); Mean Platelet Volume 10.4 fL (9.4-12.4); Platelet Count 445 K/mcL (140-400); Red Blood Count 3.47 M/mcL (3.82-4.97); Red Cell Distribution Width 15.1 % (11.5-14.5); White Blood Count 20.7 K/mcL (4.3-11.1)
[2021-12-04 04:00] LABS: Calcium 10.1 mg/dL (8.6-10.3); Potassium 4.6 mEq/L (3.5-5.1)
[2021-12-04] MEDS: Doxycycline 100 MG in 0.9 % Sodium Chloride Mini Bag 100 ML IVPB SCH ×2 (05:34→16:20)
[2021-12-04] MEDS: Budesonide/Formoterol 160/4.5 1 PUFF INH IH SCH ×2 (07:28→20:20)
[2021-12-04] MEDS: Aspirin Enteric Coated 81 MG Tablet PO SCH (07:40)
[2021-12-04] MEDS: Pregabalin 50 MG CAPSULE PO SCH ×3 (07:40→22:06)
[2021-12-04] MEDS ORDERED: Iopamidol - 370 500 ML MLS IVP ONE ×2 (11:07→11:08)
[2021-12-04] MEDS ORDERED: Albumin 25% 25gram/100mL 25 GM/100 ML IV.SOLN IVPB ONE (15:52)
[2021-12-04] MEDS: MethylPREDNISolone 40 MG/ML VIAL IVP SCH (17:30)
[2021-12-04] MEDS: cefTRIAXone 1,000 MG in 0.9 % Sodium Chloride 10 ML IVP SCH (17:32)
[2021-12-04] MEDS ORDERED: Furosemide 40 MG/4 ML VIAL IVP ONE (17:45)
[2021-12-04] MEDS: Heparin 25,000UNIT/250ML 1/2NS 25,000 UNIT/250 ML IV.SOLN IVC SCH (18:02)
[2021-12-04 19:21] LABS: Adenovirus Not Detected (Not Detect); Bordetella Pertussis Not Detected (Not Detect); Chlamydophila pneumoniae Not Detected (Not Detect); Coronavirus 229E Not Detected (Not Detect); Coronavirus HKU1 Not Detected (Not Detect); Coronavirus NL63 Not Detected (Not Detect); Coronavirus OC43 Not Detected (Not Detect); Human Metapneumovirus Not Detected (Not Detect); Human Rhinovirus/Enterovirus Not Detected (Not Detect); Influenza A Subtype 2009 H1 Not Detected (Not Detect); Influenza B Not Detected (Not Detect); Mycoplasma pneumoniae Not Detected (Not Detect); Parainfluenza Virus 1 Not Detected (Not Detect); Parainfluenza Virus 2 Not Detected (Not Detect); Parainfluenza Virus 3 Not Detected (Not Detect); Parainfluenza Virus 4 Not Detected (Not Detect); Respiratory Syncytial Virus Not Detected (Not Detect); SARS-CoV-2 Not Detected (Not Detect)
[2021-12-04] MEDS: Morphine Sulfate Oral CONC 10 MG/0.5 ML ORAL.SYG SL PRN (22:10)
[2021-12-05] MEDS: *HR* LORazepam Oral Conc 2 MG/ML SL PRN ×2 (01:27→08:27)
[2021-12-05] MEDS: Morphine Sulfate Oral CONC 10 MG/0.5 ML ORAL.SYG SL PRN ×2 (01:53→09:29)
[2021-12-05] MEDS: Doxycycline 100 MG in 0.9 % Sodium Chloride Mini Bag 100 ML IVPB SCH ×2 (05:15→18:12)
[2021-12-05] MEDS: MethylPREDNISolone 40 MG/ML VIAL IVP SCH ×2 (05:15→18:13)
[2021-12-05 05:52] LABS: Basophils % 0.3 %; Eosinophils % 0.1 %; Hematocrit 31.8 % (35.3-44.9); Lymphocytes # 0.8 K/mcL (0.6-4.6); Lymphocytes % 6.2 %; Mean Corpuscular HGB Conc 31.4 g/dL (31.6-35.5); Mean Corpuscular Hemoglobin 28.6 pg (28.0-33.3); Mean Corpuscular Volume 90.9 fL (83.0-100.0); Mean Platelet Volume 10.2 fL (9.4-12.4); Monocytes # 0.4 K/mcL (0.0-1.3); Neutrophils # 11.8 K/mcL (1.6-8.9); Nucleated Red Blood Cells 0.2 /100 WBC (0); Platelet Count 474 K/mcL (140-400); Red Cell Distribution Width 15.4 % (11.5-14.5); Segmented Neutrophils % 89.4 %; White Blood Count 13.2 K/mcL (4.3-11.1)
[2021-12-05 06:08] LABS: Calcium 10.7 mg/dL (8.6-10.3); Potassium 4.4 mEq/L (3.5-5.1)
[2021-12-05] MEDS: Aspirin Enteric Coated 81 MG Tablet PO SCH (08:13)
[2021-12-05] MEDS: Pregabalin 50 MG CAPSULE PO SCH ×3 (08:13→21:19)
[2021-12-05] MEDS ORDERED: Haloperidol Lactate 5 MG/ML VIAL IVP PRN ×2 (10:09→11:09)
[2021-12-05] MEDS: Budesonide/Formoterol 160/4.5 1 PUFF INH IH SCH ×2 (10:52→20:20)
[2021-12-05 12:01] LABS: ABG Base Excess 4 mEq/L (-2 to 3); ABG HCO3 30 mEq/L (21-27); ABG Oxygen Saturation 93 % (95-98); ABG PCO2 50 mmHg (35-45); ABG PH 7.39 pH Units (7.32-7.45); ABG PO2 69 mmHg (85-104); ABG TCO2 32 mEq/L (20-26)
[2021-12-05] MEDS ORDERED: Morphine Sulfate Oral CONC 10 MG/0.5 ML ORAL.SYG SL PRN ×2 (13:09→13:11)
[2021-12-05] MEDS ORDERED: *HR* LORazepam Oral Conc 2 MG/ML SL PRN (13:11)
[2021-12-05] MEDS: Haloperidol Lactate 5 MG/ML VIAL IVP SCH ×2 (13:55→19:52)
[2021-12-05] MEDS: cefTRIAXone 1,000 MG in 0.9 % Sodium Chloride 10 ML IVP SCH (18:13)
[2021-12-05] MEDS: Heparin 25,000UNIT/250ML 1/2NS 25,000 UNIT/250 ML IV.SOLN IVC SCH (21:18)
[2021-12-06] MEDS: Haloperidol Lactate 5 MG/ML VIAL IVP SCH ×2 (02:47→07:56)
[2021-12-06 04:15] VITALS: BP 145/60; PULSE 133; TEMP 98.1; O2SAT 95
[2021-12-06] MEDS: Doxycycline 100 MG in 0.9 % Sodium Chloride Mini Bag 100 ML IVPB SCH (05:14)
[2021-12-06] MEDS: MethylPREDNISolone 40 MG/ML VIAL IVP SCH (05:14)
[2021-12-06] MEDS: Pregabalin 50 MG CAPSULE PO SCH (08:04)
[2021-12-06] MEDS: Aspirin Enteric Coated 81 MG Tablet PO SCH (08:04)
[2021-12-06] MEDS ORDERED: *HR* LORazepam 2 MG/ML VIAL IVP PRN (09:28)
[2021-12-06] MEDS: Morphine Sulfate 2 MG/ML SYRINGE IVP PRN ×3 (10:24→13:03)
[2021-12-06] MEDS: Budesonide/Formoterol 160/4.5 1 PUFF INH IH SCH (10:48)
[2021-12-06] MEDS: *HR* LORazepam 2 MG/ML VIAL IVP PRN ×2 (12:09→14:49)
== END 2021-12-06 18:01 | disposition expired | DRG 871 ==
LOC: EMEROOARM 10:20 → ICNU 10:20 → SUATTDRO 14:34 → ICNU 15:30 → 2NENU 11-24 18:46
PROVIDERS: ADMIT Emergency Medicine; ATTEND Internal Medicine